=== PATIENT | male | born 1965 | race Caucasian/White ===

== ENCOUNTER → 2017-07-13 | Outpatient (CLI) | payer BC | END | disposition home or self-care (01) | LOC: C.LABSPEC 16:56 | PROVIDERS: ATTEND Podiatrist Foot & Ankle Surgery | DX: B35.1 Tinea unguium (principal) ==

== ENCOUNTER → 2017-07-28 | Outpatient (CLI) | payer BC ==
[~2017-07-28] VITALS: Ht 182.9 cm; Wt 99.9 kg
[2017-07-28 15:20] VITALS: BP 142/83; PULSE 62; Ht 182.9 cm; Wt 99.9 kg
== END | disposition home or self-care (01) ==
LOC: C.NEUR 14:48
PROVIDERS: ATTEND Internal Medicine Pulmonary Disease
DX: G47.30 Sleep apnea, unspecified (principal); R53.83 Other fatigue; J34.2 Deviated nasal septum

== ENCOUNTER 2018-06-01 17:21 | Emergency (ER) | payer BC, OTHER ==
[~2018-06-01] VITALS: Ht 182.9 cm; Wt 102.6 kg
[2018-06-01 17:26] VITALS: TEMP 36.7; Ht 182.9 cm; Wt 102.6 kg
[2018-06-01] MEDS ORDERED: ONDANSETRON INJ 2 MG/ML 2 ML VIAL IV STA (17:40)
[2018-06-01] MEDS ORDERED: ACETAMINOPHEN 500 MG TAB PO STA (17:40)
[2018-06-01] MEDS ORDERED: KETOROLAC TROMETHAMINE 30 MG/ML VIAL IV STA (17:40)
--- NOTE | 2018-06-01 17:40 | EMERGENCY ROOM VISIT NOTE ---
History Report prepared by Rosa: Sagar Escobar Under the Supervision of: Dr. Vimal Beltrán M.D. First contact with patient: 17:30 Chief Complaint: FLANK PAIN Stated Complaint: SEVERE KIDNEY PAIN History of Present Illness The patient is a 52 year old white male with a history of Acid Reflux and Sleep Apnea who presents to the Emergency Room with complaints of right flank pain x1 hour. He states the pain started x1 hour ago and notes it is sharp. He denies the pain radiating. He states he was sitting at his desk when the pain started and denies any wrong twists/turns. He denies a fever, vomiting, diarrhea, or urinary complaints. He does note nausea and chills. Source of History: patient Onset: x1 hour Position: abdomen Symptom Intensity: moderate Quality: sharp Timing: constant Associated Symptoms: + chills, + nausea, + abdominal pain, No fevers, No chest pain, No SOB, No vomiting, No diarrhea, No urinary symptoms Review of Systems See HPI for pertinent positives and negatives. A total of ten systems were reviewed and were otherwise negative. Constitutional: + chills, No fever Abdomen: + pain, + nausea, No vomiting, No diarrhea Genitourinary - Male: No hematuria, No dysuria, No urinary frequency Past Medical & Surgical Medical Problems: (1) Acid reflux (2) Sleep apnea Social History Smoking Status: Never Smoker Drug Use: none Marital Status: Housing Status: lives with significant other Occupation Status: employed Current/Historical Medications Scheduled Tamsulosin Hcl (Flomax), 0.4 MG PO DAILY Scheduled PRN Esomeprazole Magnesium (Nexium), 40 MG PO DAILY PRN for Acid Reflux Ondansetron Hcl (Zofran), 4 MG PO Q8H PRN for Nausea Oxycodone Immediate Rel Tab (Roxicodone Ir), 5 MG PO Q6H PRN for Pain Allergies Coded Allergies: No Known Allergies (Unverified , 04/05/14) Physical Exam Vital Signs Date Time Temp Pulse Resp B/P (MAP) Pulse Ox O2 Delivery O2 Flow Rate FiO2 06/01/18 19:10 67 20 140/85 97 Room Air 06/01/18 18:32 54 06/01/18 18:06 62 23 148/82 100 Room Air 06/01/18 17:26 36.7 65 20 146/88 98 Room Air Physical Exam GENERAL: Awake, alert, well-appearing, NAD HENT: Normocephalic, atraumatic. EYES: Normal conjunctiva. Sclera non-icteric. PERRL. No anisocoria. NECK: Supple. No nuchal rigidity. FROM. RESPIRATORY: CTAB, no rhonchi, wheezing, crackles CARDIAC: RRR, no MRG ABDOMEN: No CVA tenderness to palpation. Negative Obturators and Psoas. Soft, NTND, BS+ MSK: No chest wall TTP, no LE edema NEURO: GCS 15, CN 2-12 intact, moves all 4s on command SKIN: No rash or jaundice noted. Medical Decision & Procedures ER Provider Diagnostic Interpretation: Radiology results as stated below per my review and radiologist interpretation: CT OF THE ABDOMEN AND PELVIS WITHOUT CONTRAST, STONE PROTOCOL CLINICAL HISTORY: Right flank pain. COMPARISON STUDY: Renal ultrasound September 09, 2007. TECHNIQUE: Helical axial images of the abdomen and pelvis were obtained without IV or oral contrast according to renal stone protocol. A dose lowering technique was utilized adhering to the principles of ALARA. FINDINGS: Several right renal calculi measure up to 5 mm. A 3 mm distal right ureteral calculus results in mild right hydronephrosis. No left ureteral calculi are present. A 4.5 cm lesion within the upper pole of the left kidney is suboptimally assessed on this unenhanced exam but this measures water attenuation and favors a cyst. There is a probable smaller cyst within the lower pole the right kidney as well as a cyst within the medial segment of the liver. No biliary or pancreatic ductal dilatation is present. Unenhanced images of the spleen, adrenal glands and pancreas are normal. There is no evidence for a bowel obstruction. The appendix is normal. A small fat-containing umbilical hernia is noted. Note is made of a few prominent left common iliac lymph nodes which measure up to 1 cm in short axis diameter, shown on image 102 of 183. No suspicious osseous lesion is noted. IMPRESSION: 1. 3 mm distal right ureteral calculus which results in mild right hydronephrosis. 2. Right-sided nephrolithiasis. 3. Borderline enlarged left common iliac lymph nodes which are likely benign. A follow-up CT of the abdomen and pelvis in 6 months to ensure stability is recommended. Electronically signed by: Shola Phillips M.D. 06/01/2018 6:32 PM Dictated Date/Time: 06/01/2018 6:23 PM Laboratory Results 06/01/18 17:50 Red Blood Count 5.03, Mean Corpuscular Volume 87.3, Mean Corpuscular Hemoglobin 30.4, Mean Corpuscular Hemoglobin Concent 34.9, Mean Platelet Volume 10.9, Neutrophils (%) (Auto) 47.5, Lymphocytes (%) (Auto) 43.1, Monocytes (%) (Auto) 5.7, Eosinophils (%) (Auto) 2.5, Basophils (%) (Auto) 0.6, Neutrophils # (Auto) 3.26, Lymphocytes # (Auto) 2.95, Monocytes # (Auto) 0.39, Eosinophils # (Auto) 0.17, Basophils # (Auto) 0.04 06/01/18 17:50 Test 06/01/18 17:50 White Blood Count 6.85 K/uL (4.8-10.8) Red Blood Count 5.03 M/uL (4.7-6.1) Hemoglobin 15.3 g/dL (14.0-18.0) Hematocrit 43.9 % (42-52) Mean Corpuscular Volume 87.3 fL (80-100) Mean Corpuscular Hemoglobin 30.4 pg (25-34) Mean Corpuscular Hemoglobin Concent 34.9 g/dl (32-36) Platelet Count 147 K/uL (130-400) Mean Platelet Volume 10.9 fL (7.4-10.4) Neutrophils (%) (Auto) 47.5 % Lymphocytes (%) (Auto) 43.1 % Monocytes (%) (Auto) 5.7 % Eosinophils (%) (Auto) 2.5 % Basophils (%) (Auto) 0.6 % Neutrophils # (Auto) 3.26 K/uL (1.4-6.5) Lymphocytes # (Auto) 2.95 K/uL (1.2-3.4) Monocytes # (Auto) 0.39 K/uL (0.11-0.59) Eosinophils # (Auto) 0.17 K/uL (0-0.5) Basophils # (Auto) 0.04 K/uL (0-0.2) RDW Standard Deviation 40.1 fL (36.4-46.3) RDW Coefficient of Variation 12.6 % (11.5-14.5) Immature Granulocyte % (Auto) 0.6 % Immature Granulocyte # (Auto) 0.04 K/uL (0.00-0.02) Urine Color YELLOW Urine Appearance CLEAR (CLEAR) Urine pH 5.0 (4.5-7.5) Urine Specific [place] 1.020 (1.000-1.030) Urine Protein NEG (NEG) Urine Glucose (UA) NEG (NEG) Urine Ketones NEG (NEG) Urine Occult Blood NEG (NEG) Urine Nitrite NEG (NEG) Urine Bilirubin NEG (NEG) Urine Urobilinogen NEG (NEG) Urine Leukocyte Esterase NEG (NEG) Anion Gap 7.0 mmol/L (3-11) Est Creatinine Clear Calc Drug Dose 75.3 ml/min Estimated GFR () 66.1 Estimated GFR (Non- 57.1 BUN/Creatinine Ratio 11.6 (10-20) Calcium Level 8.2 mg/dl (8.5-10.1) Total Bilirubin 0.6 mg/dl (0.2-1) Direct Bilirubin 0.2 mg/dl (0-0.2) Aspartate Amino Transf (AST/SGOT) 21 U/L (15-37) Alanine Aminotransferase (ALT/SGPT) 35 U/L (12-78) Alkaline Phosphatase 146 U/L (45-117) Total Protein 6.9 gm/dl (6.4-8.2) Albumin 3.6 gm/dl (3.4-5.0) Lipase 294 U/L (73-393) Laboratory results reviewed by me Medications Administered Medications (Trade) Dose Ordered Sig/Neftali Route Start Time Stop Time Status Last Admin Dose Admin Ondansetron HCl (Zofran Inj) 4 mg NOW STAT IV 06/01/18 17:40 06/01/18 17:42 DC 06/01/18 17:57 4 MG Ketorolac Tromethamine (Toradol Inj) 30 mg NOW STAT IV 06/01/18 17:40 06/01/18 17:42 DC 06/01/18 17:58 30 MG Acetaminophen (Tylenol Tab) 1,000 mg NOW STAT PO 06/01/18 17:40 06/01/18 17:42 DC 06/01/18 17:57 1,000 MG Calcium Carbonate (Tums Chew Tab) 1,500 mg ONE STAT PO 06/01/18 18:32 06/01/18 18:33 DC 06/01/18 19:02 1,500 MG Tamsulosin HCl (Flomax Cap) 0.4 mg NOW ONCE PO 06/01/18 18:45 06/01/18 18:46 DC 06/01/18 19:02 0.4 MG Oxycodone HCl (Roxicodone Immediate Rel 5MG Home Pack) 1 homepack UD ONCE PO 06/01/18 18:45 06/01/18 18:46 DC 06/01/18 19:02 1 [facility] Medical Decision Nursing notes reviewed. Ancillary studies and prior records reviewed. The patient is a 52 year old white male with a history of Acid Reflux and Sleep Apnea who presents to the Emergency Room with complaints of right flank pain x1 hour. Differential diagnosis: Etiologies such as renal colic, appendicitis, diverticulitis, mesenteric ischemia, aortic pathology, infections, inflammatory bowel disease, PUD, biliary pathology, UTI, as well as others were entertained. Patient was seen and evaluated the bedside. The patient was presenting with concern for right-sided flank pain. Patient denies any hematuria recent heavy lifting or straining or twisting. Patient also denies any recent trauma. Patient did blood work completed along with urinalysis and a CT Noncon to evaluate for possible stone. Patient's blood work shows normal H&H and normal kidney function. Urinalysis does not show any blood and does not show any evidence of acute infection. Patient's CT scan did show a distal 3 mm stone that is close to the bladder. Given the location and size I do not believe he needs emergent intervention at this time. I did discuss the findings with the patient. The patient is feeling much improved after he had been medicated. I did have a discussion with the patient about appropriate hzhy-keo-[id number] treatment as well as narcotic medication. Patient was given a prescription for narcotics for home was told to use them with caution. Patient was also given additional industrial relations counselor about when and when not to use them. The patient was given warning signs for which to return. Patient was given a first dose of Flomax. The patient also did have noted increased pelvic lymphadenopathy. I did explain this to the patient and that he should follow-up with his PCP for a possible repeat scan in 6 months for surveillance. Patient was given strict follow-up, discharge, and return precautions. All questions were answered. Patient was deemed suitable for outpatient follow-up at this time. Patient agreed with the plan of care and was safely discharged home. [place] Drug Monitoring Program Search Results: patient reviewed within database Drug Monitoring Findings: No controlled narcotics since June of last year w/in [place] Medication Reconcilliation Current Medication List: was personally reviewed by me Blood Pressure Screening Patient's blood pressure: Elevated blood pressure Blood pressure disposition: Referred to PCP Impression Primary Impression: Renal colic on right side Additional Impression: Flank pain Scribe Attestation The scribe's documentation has been prepared under my direction and personally reviewed by me in its entirety. I confirm that the note above accurately reflects all work, treatment, procedures, and medical decision making performed by me. Departure Information Dispostion Home / Self-Care Prescriptions Oxycodone Immediate Rel Tab (ROXICODONE IR) 5 Mg Tab 5 MG PO Q6H Y for Pain, #15 TAB Prov: Vimal Beltrán M.D. 06/01/18 Ondansetron Hcl (ZOFRAN) 4 Mg Tab 4 MG PO Q8H Y for Nausea, #12 TAB Prov: Vimal Beltrán M.D. 06/01/18 Tamsulosin Hcl (FLOMAX) 0.4 Mg Cap 0.4 MG PO DAILY for 12 Days, #12 CAP Prov: Vimal Beltrán M.D. 06/01/18 Referrals Haydee Foley MD (PCP) Patient Instructions Kidney Stones - [facility], Kidney Stones [facility], [facility] Additional Instructions Please return to the emergency department if you have worsening or recurrent symptoms not amenable to at-home treatment. Please call for a follow-up appointment with her primary care physician. Please take your medications as prescribed. If you have other concerns and/or complaints please feel free to also call your primary care physician's office or return the ED for further evaluation, management, and treatment. You may take 600 mg Ibuprofen every 6 hours as needed for pain/fever with food unless told by your physician not to take NSAIDs. You may take tylenol 650 mg every 6 hours as needed for pain/fever unless told by your physician to not take it or have liver problems. You may take motrin and tylenol separately or at the same time. Take your medications as prescribed. If you still have discomfort you may take the narcotic medication. Please be advised that these medications are habit forming, can make you sleepy, and can cause breathing issues. Do not use if you require your full attention. Take only as prescribed. Please take your Flomax before bed as it can cause some low blood pressure and lightheadedness. As discussed you do have some pelvic lymphadenopathy which may require a repeat CT scan for surveillance in 6 months. Please discuss this with your primary care physician. You have been examined and treated today on an emergency basis only. This is not a substitute for, or an effort to provide, complete comprehensive medical care. It is impossible to recognize and treat all injuries or illnesses in a single emergency department visit. It is therefore important that you follow up closely with [facility], your PCP, and/or your specialist(s). Call as soon as possible for an appointment. Thank you for your time and consideration. I look forward to speaking with you again soon. Please don't hesitate to call us if you have any questions. Problem Qualifiers
[2018-06-01 18:03] LABS: BASO % 0.6 %; BASO ABS # 0.04 K/uL (0-0.2); EOS % 2.5 %; EOS ABS # 0.17 K/uL (0-0.5); HEMATOCRIT 43.9 % (42-52); HEMOGLOBIN 15.3 g/dL (14.0-18.0); IG# 0.04 K/uL (0.00-0.02); LYMPH % 43.1 %; LYMPH ABS # 2.95 K/uL (1.2-3.4); MEAN CELL VOLUME 87.3 fL (80-100); MEAN CORPUSCULAR HEMOGLOBIN 30.4 pg (25-34); MEAN CORPUSCULAR HGB CONC 34.9 g/dl (32-36); MEAN PLATELET VOLUME 10.9 fL (7.4-10.4); MONO % 5.7 %; MONO ABS # 0.39 K/uL (0.11-0.59); NEUT % 47.5 %; NEUT ABS # 3.26 K/uL (1.4-6.5); PLATELET COUNT 147 K/uL (130-400); RED CELL DISTRIBUTION WIDTH CV 12.6 % (11.5-14.5); RED CELL DISTRIBUTION WIDTH SD 40.1 fL (36.4-46.3); WHITE BLOOD COUNT 6.85 K/uL (4.8-10.8)
[2018-06-01 18:27] LABS: ALBUMIN 3.6 gm/dl (3.4-5.0); CALCIUM 8.2 mg/dl (8.5-10.1); CREATININE 1.39 mg/dl (0.60-1.40); POTASSIUM 3.5 mmol/L (3.5-5.1); TOTAL PROTEIN 6.9 gm/dl (6.4-8.2)
[2018-06-01] MEDS ORDERED: CALCIUM CARBONATE 500 MG CHEWABLE PO STA (18:32)
--- NOTE | 2018-06-01 18:33 | DIAGNOSTIC IMAGING REPORT ---
CT OF THE ABDOMEN AND PELVIS WITHOUT CONTRAST, STONE PROTOCOL CLINICAL HISTORY: Right flank pain. COMPARISON STUDY: Renal ultrasound September 09, 2007. TECHNIQUE: Helical axial images of the abdomen and pelvis were obtained without IV or oral contrast according to renal stone protocol. A dose lowering technique was utilized adhering to the principles of ALARA. FINDINGS: Several right renal calculi measure up to 5 mm. A 3 mm distal right ureteral calculus results in mild right hydronephrosis. No left ureteral calculi are present. A 4.5 cm lesion within the upper pole of the left kidney is suboptimally assessed on this unenhanced exam but this measures water attenuation and favors a cyst. There is a probable smaller cyst within the lower pole the right kidney as well as a cyst within the medial segment of the liver. No biliary or pancreatic ductal dilatation is present. Unenhanced images of the spleen, adrenal glands and pancreas are normal. There is no evidence for a bowel obstruction. The appendix is normal. A small fat-containing umbilical hernia is noted. Note is made of a few prominent left common iliac lymph nodes which measure up to 1 cm in short axis diameter, shown on image 102 of 183. No suspicious osseous lesion is noted. IMPRESSION: 1. 3 mm distal right ureteral calculus which results in mild right hydronephrosis. 2. Right-sided nephrolithiasis. 3. Borderline enlarged left common iliac lymph nodes which are likely benign. A follow-up CT of the abdomen and pelvis in 6 months to ensure stability is recommended. Electronically signed by: Shola Phillips M.D. 06/01/2018 6:32 PM Dictated Date/Time: 06/01/2018 6:23 PM
[2018-06-01] MEDS ORDERED: TAMSULOSIN HCL 0.4 MG CAP PO ONE (18:45)
[2018-06-01] MEDS ORDERED: OXYCODONE IR HOME PACK PO ONE (18:45)
[2018-06-01] MEDS ORDERED: NXM/40 PO (18:45)
[2018-06-01] MEDS ORDERED: TAMS0.4C38 PO (18:56)
[2018-06-01] MEDS ORDERED: ONDA4TAB46 PO (18:56)
[2018-06-01] MEDS ORDERED: OXYC-737 PO (18:56)
[2018-06-01 19:10] VITALS: BP 140/85; PULSE 67; O2SAT 97
== END 2018-06-01 19:40 | disposition home or self-care (01) ==
LOC: C.EDB 17:23 → C.EDA 19:40
DX: N23 Unspecified renal colic (principal); R03.0 Elevated blood-pressure reading, without diagnosis of hypertension; Z79.899 Other long term (current) drug therapy

== ENCOUNTER 2021-10-10 16:17 | Inpatient (IN) ==
[2021-10-10] MEDS ORDERED: SODIUM CHLORIDE 0.9% 1000ML 1,000 ML IV ONE ×2 (16:38→17:55)
[2021-10-10] MEDS ORDERED: MoRPHine SULFATE 10 MG/ML CARP/VIAL IV STA (16:38)
[2021-10-10] MEDS ORDERED: ONDANSETRON INJ 2 MG/ML 2 ML VIAL IV STA (16:38)
[2021-10-10 17:05] LABS: Basophils # (auto) 0.02 K/uL (0-0.2); Basophils % (auto) 0.3 %; Eosinophils # (auto) 0.11 K/uL (0-0.5); Eosinophils % (auto) 1.4 %; Hemoglobin 16.9 g/dL (14.0-18.0); Immature Granulocytes # (auto) 0.03 K/uL (0.00-0.02); Immature Granulocytes % (auto) 0.4 %; Lymphocytes % (auto) 25.4 %; Mean Corpuscular Hemoglobin 30.9 pg (25-34); Mean Corpuscular Volume 85.9 fL (80-100); Mean Platelet Volume 10.9 fL (7.4-10.4); Monocytes % (auto) 7.6 %; Neutrophils % (auto) 64.9 %; Platelet Count 163 K/uL (130-400); RDW Coefficient of Variation 12.2 % (11.5-14.5); RDW Standard Deviation 38.1 fL (36.4-46.3); Red Blood Count 5.47 M/uL (4.7-6.1); White Blood Count 7.86 K/uL (4.8-10.8)
--- NOTE | 2021-10-10 17:18 | CT Scan Report ---
ABDOMEN AND PELVIS CT WITHOUT CONTRAST CT DOSE: 1084.68 mGycm HISTORY: right flank pain, hx stones TECHNIQUE: Multiaxial CT images of the abdomen and pelvis were performed without contrast. A dose lo wering technique was utilized adhering to the principles of ALARA. COMPARISON STUDY: Abdomen and pelvis CT 10/17/2020. FINDINGS: Scattered subcentimeter pulmonary nodules are again noted at the lung bases. These are not significantly changed. No pneumoperitoneum. No pneumatosis. No suspicious lytic or blastic osseous le sions. Tiny fat-containing umbilical hernia. The unenhanced gallbladder, spleen, pancreas, and adrena l glands are unremarkable. Normal caliber abdominal aorta. The bladder is unremarkable. The prostate gland is mildly enlarged. Moderate well-formed stool seen throughout the colon. No bowel wall thicken ing or obstruction. Normal appendix. Slight improvement in the mild lymphadenopathy seen within the d istal periaortic and right common iliac stations. Dominant right common iliac lymph node currently me asures 18 x 10 mm, previously measuring 22 x 13 mm. No mesenteric lymphadenopathy. Stable hypodense l esion within the liver which favors a cyst. Stable left renal hypodense lesions which also likely rep resent cysts. There are few small stones within the right kidney measuring up to 4 mm. There is a 4 m m stone within the proximal right ureter on image 249 resulting in mild right hydronephrosis. No left renal or ureteral stones. No left-sided hydronephrosis. IMPRESSION: 1. A 4 mm obstructing stone within the proximal right ureter resulting in mild right hydronephrosis. 2. Right-sided nephrolithiasis. 3. Stable subcentimeter pulmonary nodules seen at the lung bases. 4. Slight improvement in the mildly enlarged distal periaortic and right common iliac lymph nodes. ACT 112: Negative or not required by law. Electronically signed by: Yann Giordano M.D. 10/10/2021 5:17 PM
[2021-10-10 17:30] LABS: Alanine Aminotransferase 63 (12-78); Albumin Level 3.9 gm/dl (3.4-5.0); Aspartate Aminotransferase 33 U/L (15-37); BUN Creatinine Ratio 16.6 (10-20); Blood Urea Nitrogen 24 mg/dl (7-18); Calcium 9.1 mg/dl (8.5-10.1); Carbon Dioxide 25 mmol/L (21-32); Chloride 109 mmol/L (98-107); Est GFR (Non-African American) 52.6 ml/min; Glucose 143 mg/dl (70-99); Potassium 3.7 mmol/L (3.5-5.1); Sodium 139 mmol/L (136-145)
[2021-10-10 17:33] LABS: Albumin Globulin Ratio 1.1 (0.9-2); Alkaline Phosphatase 176 U/L (45-117); Bilirubin,Total 0.9 mg/dl (0.2-1); Globulin 3.6 gm/dl (2.5-4.0); Total Protein 7.5 gm/dl (6.4-8.2)
[2021-10-10] MEDS ORDERED: HYDROmorphone INJ 1 MG/ML SYRINGE IV STA (17:55)
[2021-10-10 18:11] LABS: Appearance Urine Clear (Clear); Bacteria Urine Automated Negative (Negative); Bilirubin Urine Negative (Negative); Blood Urine 2+ (Negative); Color Urine Yellow; Epithelial Cell Urine Auto 20-30 /lpf (0-5); Glucose Urine UA Negative (Negative); Ketones Urine Trace (Negative); Leukocyte Esterase Urine Negative (Negative); Nitrite Urine Negative (Negative); Protein Urine Negative (Negative); Specific Gravity Urine 1.022 (1.000-1.030); Urobilinogen Urine Negative (Negative); pH Urine 5.5 (4.5-7.5)
--- NOTE | 2021-10-10 18:17 | Emergency Department Note ---
History of Present Illness General Chief complaint: Kidney Stone Stated complaint: KIDNEY STONE, PAIN ON R SIDE Time Seen by Provider: 10/10/21 17:35 Source: patient Mode of arrival: ambulatory Limitations: no limitations History of Present Illness Maximum Pain Intensity: 10 This patient is a 55-year-old male who presents to the emergency department for evaluation of right-sided flank pain. Patient has a history of kidney stones and states this feels similar. He reports the pain is in his right flank. He denies any urinary symptoms at this time, but states that he has not urinated since the pain started. He rates the pain a "08/21." He denies any vomiting but does report nausea. He denies having any prior surgery due to kidney stones. Home Medications Medication Instructions Recorded Confirmed Type esomeprazole magnesium 40 mg 40 mg PO QPM #90 cap 06/19/21 10/10/21 Rx capsule,delayed release atorvastatin 10 mg tablet 10 mg PO QPM #90 tab 09/04/21 10/10/21 Rx Allergies Allergy/AdvReac Type Severity Reaction Status Date / Time No Known Allergies Allergy Verified 10/10/21 18:30 Past Med/Surg History Medical History (Updated 10/10/21 @ 21:05 by Marcela Vargas PA-C) GERD (gastroesophageal reflux disease) Kidney stones Migraine HX OF Sleep apnea cpap Urination frequency Surgical History History of colonoscopy History of tooth extraction Hx of vasectomy Family History Sister Breast cancer Family hx colonic polyps Mother Breast cancer Grandfather Myocardial infarction Father Family hx colonic polyps Other No family history of adverse response to anesthesia Denies family history of Ovarian cancer Prostate cancer Colorectal cancer Social History Smoking Status: Never smoker Second Hand Exposure: Yes (in childhood); Hx Alcohol Use: No Hx Substance Use: No Preferred Language: [place] Zealander Communication Ability: Effective Visual Impairment: No Limitations Hearing Ability: Normal Legal Secretary Required: No Beliefs That Will Affect Care: None marital status: Current Living Situation: Significant Other current occupational status: employed How many Children do You have: 2 Feels Safe at Home: Yes Childhood Exposure to Second-Hand Smoke: No caffeine: Yes during the past year weight has: increased > 10 lbs Dental Care, Regularly: Yes Physical Activity Frequency: Daily Seatbelt Use: always Sunscreen Use: Yes Assistive Devices: CPAP and Glasses Review of Systems A total of 10 systems reviewed and were otherwise negative Physical Exam Vital Signs Vital Signs - 24 hr 10/10/21 16:34 10/10/21 18:17 10/10/21 19:30 Temperature 36.8 C Temperature Source Temporal Artery Scan Pulse Rate 56 L Pulse Rate [Finger] 88 87 Respiratory Rate 22 20 18 Blood Pressure 145/91 H Blood Pressure [Left Arm] 158/85 H 130/72 Blood Pressure Mean 109 Blood Pressure Mean [Left Arm] 109 91 Pulse Oximetry 99 98 94 Oxygen Delivery Method Room Air Room Air Sepsis Recent Fever Within 48 Hours No Sepsis New/Unexplained Change in Mental Status N/A Sepsis Action Taken by Nursing No Action Required Oxygen Flow Rate - Titration Pulse Oximetry Post Tiitration 10/10/21 20:13 Temperature Temperature Source Pulse Rate Pulse Rate [Finger] Respiratory Rate Blood Pressure Blood Pressure [Left Arm] Blood Pressure Mean Blood Pressure Mean [Left Arm] Pulse Oximetry 87 L Oxygen Delivery Method Room Air Nasal Cannula Sepsis Recent Fever Within 48 Hours Sepsis New/Unexplained Change in Mental Status Sepsis Action Taken by Nursing Oxygen Flow Rate - Titration 2 Pulse Oximetry Post Tiitration 94 VITALS: Vitals are noted on the nurse's note and reviewed by myself. GENERAL: This is a 55-year-old male, in no acute distress, well-developed well- nourished. SKIN: The skin was without rashes. EYES: Pupils equal round and reactive to light and accommodation. MOUTH: Mucous membranes moist. NECK: Supple without nuchal rigidity. HEART: Regular rate and rhythm without murmurs gallops or rubs. LUNGS: Clear to auscultation bilaterally without wheezes, rales or rhonchi. ABDOMEN: Positive bowel sounds x 4. Soft, nontender to palpation. Right-sided CVA tenderness. No guarding or rebound tenderness. NEURO: Patient was alert and oriented to person place and time. Course Administered Medications Discontinued Medications Hydromorphone HCl (Hydromorphone Inj 1 Mg/Ml Syringe) 1 mg IV NOW STA Stop: 10/10/21 17:56 Last Admin: 10/10/21 18:00 Dose: 1 mg Documented by: [id number] Sodium Chloride (Nss 1000ml) 1,000 mls @ 999 mls/hr IV .Q1H1M ONE Stop: 10/10/21 17:38 Last Infusion: 10/10/21 18:01 Dose: 0 mls/hr Documented by: [id number] Admin: 10/10/21 16:53 Dose: 999 mls/hr Documented by: [id number] Sodium Chloride (Nss 1000ml) 1,000 mls @ 999 mls/hr IV .Q1H1M ONE Stop: 10/10/21 18:55 Last Infusion: 10/10/21 19:04 Dose: 0 mls/hr Documented by: [id number] Admin: 10/10/21 18:00 Dose: 999 mls/hr Documented by: [id number] Acetaminophen (Ofirmev) 1,000 mg in 100 mls @ 400 mls/hr IV NOW STA Stop: 10/10/21 19:23 Last Infusion: 10/10/21 19:43 Dose: 0 mls/hr Documented by: [id number] Admin: 10/10/21 19:17 Dose: 400 mls/hr Documented by: [id number] Morphine Sulfate (Morphine Sulfate 10 Mg/Ml Carp/Vial) 6 mg IV NOW STA Stop: 10/10/21 16:39 Last Admin: 10/10/21 16:52 Dose: 6 mg Documented by: [id number] Ondansetron HCl (Ondansetron Inj 2 Mg/Ml 2 Ml Vial) 4 mg IV NOW STA Stop: 10/10/21 16:39 Last Admin: 10/10/21 16:52 Dose: 4 mg Documented by: [id number] Medical Decision Making Differential Diagnosis Differential diagnosis includes renal calculus, pyelonephritis, musculoskeletal pain, ruptured AAA, aortic dissection, diverticulitis, perforated viscus, bowel obstruction, biliary pathology, pancreatitis, PE, pneumonia, pneumothorax, trauma, herpes zoster, malignancy, among others. Home Medications Current Medication List: was personally reviewed by me Laboratory Data Attestation: I reviewed the patient's lab results. Result diagrams: 10/10/21 16:53 10/10/21 16:53 Lab Results 10/10/21 10/10/21 10/10/21 Range/Units 16:53 16:53 17:47 WBC 7.86 (4.8-10.8) K/uL RBC 5.47 (4.7-6.1) M/uL Hgb 16.9 (14.0-18.0) g/dL Hct 47.0 (42-52) % MCV 85.9 (80-100) fL MCH 30.9 (25-34) pg MCHC 36.0 (32-36) g/dL RDW Std Deviation 38.1 (36.4-46.3) fL RDW Coeff of Rick 12.2 (11.5-14.5) % Plt Count 163 (130-400) K/uL MPV 10.9 H (7.4-10.4) fL Immature Gran % (Auto) 0.4 % Neut % (Auto) 64.9 % Lymph % (Auto) 25.4 % Grant % (Auto) 7.6 % Eos % (Auto) 1.4 % Baso % (Auto) 0.3 % Neut # (Auto) 5.10 (1.4-6.5) K/uL Lymph # (Auto) 2.00 (1.2-3.4) K/uL Grant # (Auto) 0.60 H (0.11-0.59) K/uL Eos # (Auto) 0.11 (0-0.5) K/uL Baso # (Auto) 0.02 (0-0.2) K/uL Immature Gran # (Auto) 0.03 H (0.00-0.02) K/uL Sodium 139 (136-145) mmol/L Potassium 3.7 (3.5-5.1) mmol/L Chloride 109 H (98-107) mmol/L Carbon Dioxide 25 (21-32) mmol/L Anion Gap 5.0 (3-11) BUN 24 H (7-18) mg/dl Creatinine 1.46 H (0.6-1.4) mg/dl Est Cr Clr Drug Dosing Not Reportable Est GFR ( Amer) 61.0 ml/min Est GFR (Non-Af Amer) 52.6 ml/min BUN/Creatinine Ratio 16.6 (10-20) Glucose 143 H (70-99) mg/dl Calcium 9.1 (8.5-10.1) mg/dl Total Bilirubin 0.9 (0.2-1) mg/dl AST 33 (15-37) U/L ALT 63 (12-78) Alkaline Phosphatase 176 H (45-117) U/L Total Protein 7.5 (6.4-8.2) gm/dl Albumin 3.9 (3.4-5.0) gm/dl Globulin 3.6 (2.5-4.0) gm/dl Albumin/Globulin Ratio 1.1 (0.9-2) Urine Color Yellow Urine Appearance Clear (Clear) Urine pH 5.5 (4.5-7.5) Ur Specific [place] 1.022 (1.000-1.030) Urine Protein Negative (Negative) Urine Glucose (UA) Negative (Negative) Urine Ketones Trace H (Negative) Urine Blood 2+ H (Negative) Urine Nitrite Negative (Negative) Urine Bilirubin Negative (Negative) Urine Urobilinogen Negative (Negative) Ur Leukocyte Esterase Negative (Negative) Urine WBC (Auto) 1-5 (0-5) /hpf Urine RBC (Auto) 10-30 H (0-4) /hpf U Hyaline Cast (Auto) 1-5 (0-5) /lpf U Epithel Cells (Auto) 20-30 H (0-5) /lpf Urine Bacteria (Auto) Negative (Negative) SARS-CoV-2, RNA, NAAT (NEGATIVE) 10/10/21 Range/Units 19:20 WBC (4.8-10.8) K/uL RBC (4.7-6.1) M/uL Hgb (14.0-18.0) g/dL Hct (42-52) % MCV (80-100) fL MCH (25-34) pg MCHC (32-36) g/dL RDW Std Deviation (36.4-46.3) fL RDW Coeff of Rick (11.5-14.5) % Plt Count (130-400) K/uL MPV (7.4-10.4) fL Immature Gran % (Auto) % Neut % (Auto) % Lymph % (Auto) % Grant % (Auto) % Eos % (Auto) % Baso % (Auto) % Neut # (Auto) (1.4-6.5) K/uL Lymph # (Auto) (1.2-3.4) K/uL Grant # (Auto) (0.11-0.59) K/uL Eos # (Auto) (0-0.5) K/uL Baso # (Auto) (0-0.2) K/uL Immature Gran # (Auto) (0.00-0.02) K/uL Sodium (136-145) mmol/L Potassium (3.5-5.1) mmol/L Chloride (98-107) mmol/L Carbon Dioxide (21-32) mmol/L Anion Gap (3-11) BUN (7-18) mg/dl Creatinine (0.6-1.4) mg/dl Est Cr Clr Drug Dosing Est GFR ( Amer) ml/min Est GFR (Non-Af Amer) ml/min BUN/Creatinine Ratio (10-20) Glucose (70-99) mg/dl Calcium (8.5-10.1) mg/dl Total Bilirubin (0.2-1) mg/dl AST (15-37) U/L ALT (12-78) Alkaline Phosphatase (45-117) U/L Total Protein (6.4-8.2) gm/dl Albumin (3.4-5.0) gm/dl Globulin (2.5-4.0) gm/dl Albumin/Globulin Ratio (0.9-2) Urine Color Urine Appearance (Clear) Urine pH (4.5-7.5) Ur Specific [place] (1.000-1.030) Urine Protein (Negative) Urine Glucose (UA) (Negative) Urine Ketones (Negative) Urine Blood (Negative) Urine Nitrite (Negative) Urine Bilirubin (Negative) Urine Urobilinogen (Negative) Ur Leukocyte Esterase (Negative) Urine WBC (Auto) (0-5) /hpf Urine RBC (Auto) (0-4) /hpf U Hyaline Cast (Auto) (0-5) /lpf U Epithel Cells (Auto) (0-5) /lpf Urine Bacteria (Auto) (Negative) SARS-CoV-2, RNA, NAAT NEGATIVE (NEGATIVE) Imaging Data Attestation: I personally reviewed and interpreted this imaging study as follows: Radiologist's Impression: Abdomen/Pelvis CT 10/10/21 16:[address] WITHOUT CONTRAST CT DOSE: 1084.68 mGycm HISTORY: right flank pain, hx stones TECHNIQUE: Multiaxial CT images of the abdomen and pelvis were performed without contrast. A dose lowering technique was utilized adhering to the principles of ALARA. COMPARISON STUDY: Abdomen and pelvis CT 10/17/2020. FINDINGS: Scattered subcentimeter pulmonary nodules are again noted at the lung bases. These are not significantly changed. No pneumoperitoneum. No pneumatosis. No suspicious lytic or blastic osseous lesions. Tiny fat-containing umbilical hernia. The unenhanced gallbladder, spleen, pancreas, and adrenal glands are unremarkable. Normal caliber abdominal aorta. The bladder is unremarkable. The prostate gland is mildly enlarged. Moderate well-formed stool seen throughout the colon. No bowel wall thickening or obstruction. Normal appendix. Slight improvement in the mild lymphadenopathy seen within the distal periaortic and right common iliac stations. Dominant right common iliac lymph node currently measures 18 x 10 mm, previously measuring 22 x 13 mm. No mesenteric lymphadenopathy. Stable hypodense lesion within the liver which favors a cyst. Stable left renal hypodense lesions which also likely represent cysts. There are few small stones within the right kidney measuring up to 4 mm. There is a 4 mm stone within the proximal right ureter on image 249 resulting in mild right hydronephrosis. No left renal or ureteral stones. No left-sided hydronephrosis. IMPRESSION: 1. A 4 mm obstructing stone within the proximal right ureter resulting in mild right hydronephrosis. 2. Right-sided nephrolithiasis. 3. Stable subcentimeter pulmonary nodules seen at the lung bases. 4. Slight improvement in the mildly enlarged distal periaortic and right common iliac lymph nodes. ACT 112: Negative or not required by law. Electronically signed by: Yann Giordano M.D. 10/10/2021 5:17 PM MDM Narrative Continuous court monitor: Order was placed for continuous court monitor. Patient was placed on the court monitor. Patient was noted to be in normal sinus rhythm at an initial rate of 70 bpm. The patient is a 55-year-old male who presents today complaining of flank pain. CT scan revealed a 4 mm proximal kidney stone with hydronephrosis. Labs revealed a mildly elevated creatinine of 1.46. Urinalysis not suggestive of infection. Patient received multiple doses of IV pain medication without much relief. He will require admission for pain control. The [facility]ist service was consulted and will evaluate the patient for further care. Impression & Plan Calculus of proximal right ureter, Hydronephrosis with obstructing calculus, Intractable abdominal pain Discharge Plan Visit Data Chief Complaint: Kidney Stone Stated Complaint: KIDNEY STONE, PAIN ON R SIDE ED Provider: Gian Caraballo ED Midlevel Provider: Marcela Vargas Discharge Problem: Calculus of proximal right ureter, Hydronephrosis with obstructing calculus, Intractable abdominal pain Forms Stand Alone Forms: [facility] Prescriptions Prescriptions: No Action esomeprazole magnesium 40 mg capsule,delayed release(DR/EC) 40 mg PO QPM Qty: 90 RF: 1 atorvastatin 10 mg tablet 10 mg PO QPM Qty: 90 RF: 1 Referrals Referrals: Haydee Foley MD [Primary Care Provider] -
[2021-10-10] MEDS ORDERED: ACETAMINOPHEN 1,000 MG/100 ML VIAL IV STA (19:09)
--- NOTE | 2021-10-10 19:51 | History & Physical Report ---
Date of Service October 10, 2021 Assessment & Plan (1) Hydronephrosis with renal and ureteral calculous obstruction: Plan: Mr. Piña is a 55 yo gentleman with a PMHx of a kidney stone who presented for sudden onset right flank pain. - CT abdomen and pelvis showing a 4mm right sided obstructing kidney stone at the proximal ureter with mild hydronephrosis - Rocephin 1g IV administered - there is a chance a 4mm stone will pass expectantly - urology consult placed - NPO in the event of potential procedure. NSS at 125mls/hr - flomax 0.4mg ordered - Pain regimen: Tylenol 1 gram IV for mild pain, Morphine 2mg IV for moderate pain, Dilaudid 1mg for severe pain. - zofran prn for nausea - strain all urine, recommend stone analysis if captured (2) Elevated serum creatinine: Plan: - creatinine 1.46, BUN at 24 - baseline 1.2 - 1.4 - likely post-renal component given obstructing stone - continue NSS and flomax - trend BMP (3) Dyslipidemia: Plan: - continue home dose atorvastatin (4) Chronic GERD: Plan: - continue home dose esomeprazole (5) Mild obstructive sleep apnea: Plan: - CPAP ordered on admission DVT ppx: SCDs - hold off on chemo in the event of procedure Diet: NPO Dispo: Med/Surg Code: Full, I discussed with patient History of Present Illness Primary Care Provider: Haydee Foley MD Mr. Piña is a 55 yo gentleman with a PMHx of kidney stones who came to the [facility] ED for sudden onset R flank pain that started 1 hour prior to arrival. He likens the nature of the pain to that which he felt with his previous kidney stone in 2018. Fortunately, he did not require any stent placement or lithotripsy with the previous stone - it passed within several hours of pain onset. He denies any dysuria or increased urinary frequency. He is nauseous but has not vomited. He denies any family history of kidney stones. He is a non-smoker. Drinks Etoh on a social basis only. He was fully immunized against COVID 19. On arrival to the ED, he was afebrile with normal HR. His BP was slightly above goal at 158/85. He was breathing well on room air. His CBC was normal. His Cr was 1.46, BUN at 24. Electrolytes WNL. UA 2+ blood, neg for infection. CT of abdomen and pelvis showing a 4mm obstructing stone within the R proximal ureter with mild hydronephrosis. He was given Tylenol, 1g IV, Morphine 6mg IV, Dilaudid 1mg IV for pain control; zofran and 2 liters of NSS. Allergies Allergy/AdvReac Type Severity Reaction Status Date / Time No Known Allergies Allergy Verified 10/10/21 18:30 Home Medications Medication Instructions Recorded Confirmed Type esomeprazole magnesium 40 mg 40 mg PO QPM #90 cap 06/19/21 10/10/21 Rx capsule,delayed release atorvastatin 10 mg tablet 10 mg PO QPM #90 tab 09/04/21 10/10/21 Rx Past Med/Surg History Medical History (Updated 10/10/21 @ 21:05 by Marcela Vargas PA-C) GERD (gastroesophageal reflux disease) Kidney stones Migraine HX OF Sleep apnea cpap Urination frequency Surgical History History of colonoscopy History of tooth extraction Hx of vasectomy Family History Sister Breast cancer Family hx colonic polyps Mother Breast cancer Grandfather Myocardial infarction Father Family hx colonic polyps Other No family history of adverse response to anesthesia Denies family history of Ovarian cancer Prostate cancer Colorectal cancer Social History Smoking Status: Never smoker Second Hand Exposure: Yes (in childhood); Hx Alcohol Use: No Hx Substance Use: No Preferred Language: Yemeni Communication Ability: Effective Visual Impairment: No Limitations Hearing Ability: Normal Ore Fielder Required: No Beliefs That Will Affect Care: None marital status: Current Living Situation: Significant Other current occupational status: employed How many Children do You have: 2 Other Information That Helps Us Care for You: No Feels Safe at Home: Yes Childhood Exposure to Second-Hand Smoke: No caffeine: Yes during the past year weight has: increased > 10 lbs Dental Care, Regularly: Yes Physical Activity Frequency: Daily Seatbelt Use: always Sunscreen Use: Yes Assistive Devices: None Review of Systems Review of Systems: All systems reviewed & are unremarkable except as noted in HPI & below Physical Exam Constitutional: WD/WN, vitals as above + acute distress (secondary to pain), + obese and cooperative Eyes: + anicteric sclerae ENMT: external ear and nose normal, oropharynx normal Neck: normal visual inspection and trachea midline Respiratory: normal respiratory effort, lungs clear to auscultation no cough Cardiovascular: RRR, no murmur, no edema Heart Sounds: normal S1 and normal S2 Extremities: no pedal edema Gastrointestinal (Abdomen): normal bowel sounds, soft, nontender, no hepatosplenomegaly No CVA tenderness Musculoskeletal: Head/Neck/Chest: normocephalic and head atraumatic Skin: no rashes, warm and dry Neurologic: moves all extremities Psychiatric: A+Ox3, euthymic affect Results & Data Results & Data ([facility]) Vital Signs (Past 12 Hours) Vital Signs Temp Pulse Pulse Resp BP BP Pulse Ox 10/10/21 18:17 88 20 158/85 H 98 10/10/21 16:34 36.8 C 56 L 22 145/91 H 99 Supervising Physician Co-Signing Physician Notes Attending addendum: I have physically seen this patient, have supervised the medical residents activities, and agree with the H&P unless as otherwise noted. Assessment and Plan: 4 mm right proximal ureteral stone/mild right hydronephrosis- NPO IV fluids Ceftriaxone 2 g IV daily Follow urine culture sensitivities Tamsulosin 0.4 mg daily Zofran 4 mg IV every 6 hours as needed Tylenol 1 g IV every 8 hours as needed mild pain or fever Morphine sulfate 2 mg IV every 4 hours as needed moderate pain Dilaudid 1 mg IV every 4 hours as needed severe pain Consult urology Remaining orders and notations as noted Resident Activity Tracking Resident Involvement: Resident Care Provided Care Provided: Adult Hospital Medicine
[2021-10-10] MEDS ORDERED: MoRPHine SULFATE 2 MG/ML CARP IM PRN (21:48)
[2021-10-10] MEDS ORDERED: cefTRIAXone SODIUM 350 MG/ML IM IM ONE (21:48)
[2021-10-10] MEDS ORDERED: MoRPHine SULFATE 2 MG/ML CARP IV PRN (22:00)
[2021-10-10] MEDS ORDERED: cefTRIAXone SODIUM 2,000 MG/70 ML BAG IV STA (22:01)
[2021-10-10] MEDS ORDERED: TAMSULOSIN HCL 0.4 MG CAP PO STA (22:02)
[2021-10-10] MEDS: PANTOprazole 40 MG TAB PO SCH (23:11)
[2021-10-10] MEDS: ATORVASTATIN 10 MG TAB PO SCH (23:12)
[2021-10-10] MEDS: HYDROmorphone INJ 0.5 MG/0.5 ML SYR IV PRN (23:14)
[2021-10-10] MEDS: ONDANSETRON INJ 2 MG/ML 2 ML VIAL IV PRN (23:19)
[2021-10-10] MEDS: SODIUM CHLORIDE 0.9% 1000ML 1,000 ML IV SCH (23:23)
[2021-10-11] MEDS: HYDROmorphone INJ 0.5 MG/0.5 ML SYR IV PRN ×6 (03:56→22:57)
[2021-10-11] MEDS: ACETAMINOPHEN 1,000 MG/100 ML VIAL IV PRN ×2 (04:33→16:33)
[2021-10-11] MEDS: ONDANSETRON INJ 2 MG/ML 2 ML VIAL IV PRN ×3 (06:12→18:17)
--- NOTE | 2021-10-11 07:29 | Hospitalist Progress Note ---
Date of Service October 11, 2021 Assessment & Plan (1) Hydronephrosis with renal and ureteral calculous obstruction: Plan: Mr. Piña is a 55 yo gentleman with a PMHx of a kidney stone who presented for sudden onset right flank pain. Renal/ureteral stone with hydronephrosis - CT abdomen and pelvis showing a 4mm right sided obstructing kidney stone at the proximal ureter with mild hydronephrosis - Rocephin 1g IV administered--hold on further abx at this time - Urology consulted: -It is possible, given his hx, that he will be able to pass the stone on his own -IV fluids -Flomax -Strain urine -OK to give diet today -NPO at Midnight -If he is unable to pass stone in the next 24 hours, will consider stent or outpatient trial of passage - Flomax 0.4mg ordered - Pain regimen: Tylenol 1 gram IV for mild pain, Morphine 2mg IV for moderate pain, Dilaudid 1mg for severe pain. - zofran prn for nausea - strain all urine, recommend stone analysis if captured Elevated serum creatinine - creatinine 1.46, BUN at 24 - baseline 1.2 - 1.4 - likely post-renal component given obstructing stone - continue NSS and flomax - trend BMP Dyslipidemia - continue home dose atorvastatin Chronic GERD - continue home dose esomeprazole Mild obstructive sleep apnea - CPAP ordered on admission DVT ppx: SCDs - hold off on chemo in the event of procedure Diet: Regular, NPO at midnight Dispo: Med/Surg Code: Full (2) Elevated serum creatinine: (3) Dyslipidemia: (4) Chronic GERD: (5) Mild obstructive sleep apnea: Admission and Anticipated Discharge Date Admission Date: October 10, 2021 Supervising Physician Co-Signing Physician Notes Attending attestation Pt seen and examined in concert with Dr. Radford. In agreement with the documented findings as noted in the resident documentation with any exceptions or additions as noted here. Somewhat somnolent but arousable and answering questions appropriately. Does complain of ongoing flank pain which is modulated but not entirely controlled by current pain medication regimen. On examination, S1/S2 nl RRR no MCG. CTAB. Abd examination with guarding 2/2 ongoing nephrolithiasis pain. Nephrolithiasis - urology consult - pain management, tamsulosin and fluids - stent vs. outpatient trial based on progress and symptoms Else see resident documentation as noted. Subjective Patient seen at bedside. Reporting 8/10 pain despite having received Dilaudid 0.5mg just before. He denies fever, chills, n/v, SOB, CP, palp currently. Does admit to some chills overnight when his pain was 10/10. Review of Systems Review of Systems: per subjective Physical Exam Physical Exam: GENERAL: A&Ox3. Uncomfortable due to pain CHEST/LUNGS: CTAB A/P. No crackles, wheezes, rales, rhonchi. HEART: RRR. No m/g/r. ABDOMEN: ND, soft. BS+ x4. + CVA tenderness. EXTREMITIES: No cyanosis, no clubbing, no edema SKIN: Warm and dry. No rashes or lesions. PSYCHIATRIC: Euthymic affect, no SI, no pressured speech, no hallucinations Results & Data Results & Data ([facility]) Vital Signs (Past 12 Hours) Vital Signs Temp Pulse Resp BP Pulse Ox 10/11/21 05:33 73 20 132/89 96 10/11/21 03:59 79 20 150/91 H 99 10/10/21 22:56 36.6 C 82 16 126/76 95 10/10/21 21:36 93 H 18 136/94 96 10/10/21 20:13 87 L 10/10/21 19:30 87 18 130/72 94 Resident Activity Tracking Resident Involvement: Resident Care Provided Care Provided: Adult Hospital Medicine
--- NOTE | 2021-10-11 07:30 | Urology Consultation ---
Date of Consultation October 11, 2021 Assessment & Plan (1) Calculus of proximal right ureter: -4mm right prox stone -It is possible, given his hx, that he will be able to pass the stone on his own -IV fluids -Flomax -Strain urine -OK to give diet today -NPO at Midnight -If he is unable to pass stone in the next 24 hours, will consider stent or outpatient trial of passage (2) Intractable abdominal pain: -Pain control (IV and Oral) per hospitalist service -Limit use of Toradol due to elevated Cr -Repeat Labs in AM History of Present Illness Reason for Consultation: Ureteral Calculus Attending Physician: Brian Cabral MD History of Present Illness 55 y/o male with a hx of kidney stones. Presented to the ER today with sudden onset of Right flank pain. Started earlier today. He reports cristo the pain is similar to kidney stones in the past. Nausea. No vomiting. No fevers. No chills. No hematuria. No dysuria. No increased urge or freq. No hest. No intermit. Occ nocturia. At CT Abd/Pelv was performed and showed: 1. A 4 mm obstructing stone within the proximal right ureter resulting in mild right hydronephrosis. 2. Right-sided nephrolithiasis. 3. Stable subcentimeter pulmonary nodules seen at the lung bases. 4. Slight improvement in the mildly enlarged distal periaortic and right common iliac lymph nodes. He was admitted to the hospital service for further evaluation. In 2018 he had a kidney stone which he was able to pass on his own. No fam hx of stones. His Cr is slightly elevated at 1.4, however it appears his baseline is 1.2-1.4. Allergies Allergy/AdvReac Type Severity Reaction Status Date / Time No Known Allergies Allergy Verified 10/10/21 18:30 Home Medications Medication Instructions Recorded Confirmed Type esomeprazole magnesium 40 mg 40 mg PO QPM #90 cap 06/19/21 10/10/21 Rx capsule,delayed release atorvastatin 10 mg tablet 10 mg PO QPM #90 tab 09/04/21 10/10/21 Rx Patient History Medical History (Updated 10/10/21 @ 21:05 by Marcela Vargas PA-C) GERD (gastroesophageal reflux disease) Kidney stones Migraine HX OF Sleep apnea cpap Urination frequency Surgical History History of colonoscopy History of tooth extraction Hx of vasectomy Family History Sister Breast cancer Family hx colonic polyps Mother Breast cancer Grandfather Myocardial infarction Father Family hx colonic polyps Other No family history of adverse response to anesthesia Denies family history of Ovarian cancer Prostate cancer Colorectal cancer Social History Smoking Status: Never smoker Second Hand Exposure: Yes (in childhood); Hx Alcohol Use: No Hx Substance Use: No Preferred Language: [place] Communication Ability: Effective Visual Impairment: No Limitations Hearing Ability: Normal 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 Beliefs That Will Affect Care: None marital status: Current Living Situation: Significant Other current occupational status: employed How many Children do You have: 2 Other Information That Helps Us Care for You: No Feels Safe at Home: Yes Childhood Exposure to Second-Hand Smoke: No caffeine: Yes during the past year weight has: increased > 10 lbs Dental Care, Regularly: Yes Physical Activity Frequency: Daily Seatbelt Use: always Sunscreen Use: Yes Assistive Devices: CPAP and Glasses Review of Systems Review of Systems: As above in HPI, otherwise unremarkable Physical Exam Constitutional: WD/WN, vitals as above Respiratory: normal respiratory effort, lungs clear to auscultation Cardiovascular: RRR, no murmur, no edema Gastrointestinal (Abdomen): normal bowel sounds, soft, nontender, no hepatosplenomegaly Skin: no rashes, warm and dry Psychiatric: A+Ox3, euthymic affect Genitourinary: no testicular masses, no penis abnormality Results & Data ([facility]) Vital Signs (Past 12 Hours) Vital Signs Temp Pulse Resp BP Pulse Ox 10/11/21 05:33 73 20 132/89 96 10/11/21 03:59 79 20 150/91 H 99 10/10/21 22:56 36.6 C 82 16 126/76 95 10/10/21 21:36 93 H 18 136/94 96 10/10/21 20:13 87 L 10/10/21 19:30 87 18 130/72 94 PG Care Time/CCT Total # of Minutes Spent Total Time Spent with Patient: Total time spent is greater than 50% in coordination of care (as documented) at patient's floor/unit and/or counseling patient: 60 Coding Level of Care Code 49434 Inpt Consult Level 4 Diagnoses Calculus of proximal right ureter N20.1 Intractable abdominal pain R10.9 Time Spent (min) 60
[2021-10-11] MEDS: SODIUM CHLORIDE 0.9% 1000ML 1,000 ML IV SCH (07:47)
[2021-10-11 08:57] LABS: Basophils # (auto) 0.02 K/uL (0-0.2); Basophils % (auto) 0.2 %; Eosinophils # (auto) 0.01 K/uL (0-0.5); Eosinophils % (auto) 0.1 %; Hematocrit (blood only) 44.8 % (42-52); Hemoglobin 15.7 g/dL (14.0-18.0); Immature Granulocytes # (auto) 0.02 K/uL (0.00-0.02); Immature Granulocytes % (auto) 0.2 %; Lymphocytes % (auto) 17.3 %; Mean Corpuscular Hemoglobin 30.5 pg (25-34); Mean Corpuscular Volume 87.2 fL (80-100); Mean Platelet Volume 10.7 fL (7.4-10.4); Monocytes # (auto) 0.36 K/uL (0.11-0.59); Monocytes % (auto) 3.9 %; Neutrophils # (auto) 7.23 K/uL (1.4-6.5); Neutrophils % (auto) 78.3 %; Platelet Count 157 K/uL (130-400); RDW Coefficient of Variation 12.5 % (11.5-14.5); RDW Standard Deviation 40.1 fL (36.4-46.3); Red Blood Count 5.14 M/uL (4.7-6.1); White Blood Count 9.24 K/uL (4.8-10.8)
[2021-10-11 09:24] LABS: Calcium 8.5 mg/dl (8.5-10.1); Creatinine Clr Calc Pharmacy 72.4 ml/min; Est GFR (Non-African American) 53.5 ml/min; Potassium 3.9 mmol/L (3.5-5.1)
[2021-10-11] MEDS: PANTOprazole 40 MG TAB PO SCH (20:27)
[2021-10-11] MEDS: ATORVASTATIN 10 MG TAB PO SCH (20:27)
[2021-10-12] MEDS: HYDROmorphone INJ 0.5 MG/0.5 ML SYR IV PRN ×5 (03:34→21:33)
--- NOTE | 2021-10-12 04:06 | Billing Data ---
Date of Service October 12, 2021 Coding Level of Care Code 82889 Initial Inpt Care Lvl 3
--- NOTE | 2021-10-12 06:46 | Hospitalist Progress Note ---
Date of Service October 12, 2021 Assessment & Plan (1) Hydronephrosis with renal and ureteral calculous obstruction: Plan: Mr. Piña is a 55 yo gentleman with a PMHx of a kidney stone who presented for sudden onset right flank pain. Renal/ureteral stone with hydronephrosis - CT abdomen and pelvis showing a 4mm right sided obstructing kidney stone at the proximal ureter with mild hydronephrosis - Rocephin 1g IV administered--hold on further abx at this time - Urology consulted: -It is possible, given his hx, that he will be able to pass the stone on his own -IV fluids -Flomax -Strain urine -NPO -Plan to take to OR tomorrow if stone doesn't pass overnight - Flomax 0.4mg ordered - Pain regimen: Tylenol 1 gram IV for mild pain, Morphine 2mg IV for moderate pain, Dilaudid 1mg for severe pain. - zofran prn for nausea - strain all urine, recommend stone analysis if captured Elevated serum creatinine - creatinine 1.46, BUN at 24 - baseline 1.2 - 1.4 - continue NSS and flomax - trend BMP Dyslipidemia - continue home dose atorvastatin Chronic GERD - continue home dose esomeprazole Mild obstructive sleep apnea - CPAP ordered on admission DVT ppx: SCDs - hold off on chemo in the event of procedure Diet: Regular, NPO at midnight Dispo: Med/Surg Code: Full (2) Elevated serum creatinine: (3) Dyslipidemia: (4) Chronic GERD: (5) Mild obstructive sleep apnea: Admission and Anticipated Discharge Date Admission Date: October 10, 2021 Supervising Physician Co-Signing Physician Notes Attending attestation Pt seen and examined in concert with Dr. Smith. In agreement with the documented findings as noted in the resident documentation with any exceptions or additions as noted here. Much less sedated on interaction today, feels that the pain has moved down inferiorly on the right flank and is better controlled on current medication re gimen. On examination, S1/S2 nl RRR no MCG. CTAB. Abd examination without TTP, R flank TTP present similar to previous. Nephrolithiasis - urology consult - continue IV and PO management, tamsulosin and fluids - per urology, continue surveillance x 1 more day. KUB ordered to determine movement of stone. stent vs. outpatient trial based on progress and symptoms Else see resident documentation as noted. Subjective Patient seen and evaluated at bedside this morning. No acute events overnight. Today patient reports his pain is improved from yesterday, currently at a 7/10 and tolerable. Nausea has resolved. No new symptoms. Patient denies CP, SOB, vomiting, lightheadedness, dizziness, and diarrhea. Review of Systems Review of Systems: See HPI Physical Exam Physical Exam: Constitutional: well-appearing, no acute distress CV: regular rhythm, no murmur appreciated, extremities well-perfused, no LE edema Resp: CTABL, no wheezes/rales/rhonchi appreciated, no increased work of breathing GI: soft, nondistended, nontender, BS normoactive MSK: mild right-sided flank tenderness Results & Data Results & Data ([facility]) Vital Signs (Past 12 Hours) Vital Signs Temp Pulse Resp BP Pulse Ox 10/11/21 22:14 36.8 C 75 18 145/86 H 94 Resident Activity Tracking Resident Involvement: Resident Care Provided Care Provided: Adult Hospital Medicine
[2021-10-12] MEDS: ACETAMINOPHEN 1,000 MG/100 ML VIAL IV PRN (11:23)
[2021-10-12] MEDS: SODIUM CHLORIDE 0.9% 1000ML 1,000 ML IV SCH ×2 (11:23→23:22)
--- NOTE | 2021-10-12 14:20 | XRay Report ---
KUB HISTORY: Follow up study in a patient with nephrolithiasis nephrolithiasis ?change COMPARISON: CT abdomen and pelvis 10/10/2021 FINDINGS: Nonobstructive bowel gas pattern. Mild gaseous distention of the large bowel. Renal shadow s are partially obscured by bowel gas. There are a few calculi of the right kidney redemonstrated ortega suring up to approximately 3 mm. Unchanged positioning of the 4 mm right ureteral calculus at the lev el of L3-L4. No pneumoperitoneum or pneumatosis. Surgical clips of the scrotum. No fracture. IMPRESSION: 1. Unchanged positioning of the 4 mm right ureteral calculus at the level of L3-L4. 2. Right nephrolithiasis redemonstrated. ACT 112: Negative or not required by law. The above report was generated using voice recognition software. It may contain grammatical, syntax o r spelling errors. Electronically signed by: Rowdy Paula M.D. 10/12/2021 2:18 PM
--- NOTE | 2021-10-12 16:38 | Urology Progress Note ---
Date of Service October 12, 2021 Assessment & Plan (1) Calculus of proximal right ureter: Plan: -4mm right prox stone -Same position on recent KUB -Pain control slightly improved -NPO at midnight again. -If unable to pass the stone, consider uscope/stent (2) Intractable abdominal pain: Plan: -Pain control (IV and Oral) per hospitalist service -Limit use of Toradol due to elevated Cr -Repeat Labs in AM Admission and Anticipated Discharge Date Admission Date: October 10, 2021 Subjective No acute events. Pain comes and goes. Pt states that the pain has changed slightly and wonders if the stone is moving. No hematuria. No dysuria. No fevers. No chills. Tolerated diet. KUB today showed 4mm right ureteral stone in similar position. Review of Systems Constitutional: as per Subjective / HPI Physical Exam Gastrointestinal (Abdomen): normal bowel sounds, soft, nontender, no hepatosplenomegaly Genitourinary: Mild right flank tenderness Results & Data ([facility] [place]) Vital Signs (Past 12 Hours) Vital Signs Temp Pulse Resp BP Pulse Ox 10/12/21 16:20 39.4 C H 113 H 20 146/66 H 96 10/12/21 16:11 36.9 C 76 16 127/78 96 10/12/21 08:00 36.9 C 76 16 123/75 92 PG Care Time/CCT Total # of Minutes Spent Total Time Spent with Patient: Total time spent is greater than 50% in coordination of care (as documented) at patient's floor/unit and/or counseling patient: Coding Level of Care Code 80498 Subseq Hosp Care Lvl 3 Diagnoses Calculus of proximal right ureter N20.1 Intractable abdominal pain R10.9
[2021-10-12] MEDS: ONDANSETRON INJ 2 MG/ML 2 ML VIAL IV PRN ×2 (17:31→21:33)
[2021-10-12] MEDS: PANTOprazole 40 MG TAB PO SCH (20:24)
[2021-10-12] MEDS: ATORVASTATIN 10 MG TAB PO SCH (20:24)
[2021-10-13] MEDS: HYDROmorphone INJ 0.5 MG/0.5 ML SYR IV PRN ×3 (01:23→10:01)
[2021-10-13] MEDS: ONDANSETRON INJ 2 MG/ML 2 ML VIAL IV PRN (05:53)
[2021-10-13 06:18] LABS: Basophils # (auto) 0.02 K/uL (0-0.2); Basophils % (auto) 0.2 %; Eosinophils # (auto) 0.04 K/uL (0-0.5); Eosinophils % (auto) 0.3 %; Hematocrit (blood only) 41.9 % (42-52); Hemoglobin 14.5 g/dL (14.0-18.0); Immature Granulocytes # (auto) 0.02 K/uL (0.00-0.02); Immature Granulocytes % (auto) 0.2 %; Lymphocytes # (auto) 1.91 K/uL (1.2-3.4); Lymphocytes % (auto) 15.3 %; Mean Corpuscular Hemoglobin 30.1 pg (25-34); Mean Corpuscular Hgb Conc 34.6 g/dL (32-36); Mean Corpuscular Volume 86.9 fL (80-100); Mean Platelet Volume 10.6 fL (7.4-10.4); Neutrophils # (auto) 9.01 K/uL (1.4-6.5); Platelet Count 149 K/uL (130-400); RDW Coefficient of Variation 12.3 % (11.5-14.5); RDW Standard Deviation 39.6 fL (36.4-46.3); Red Blood Count 4.82 M/uL (4.7-6.1)
[2021-10-13 06:49] LABS: BUN Creatinine Ratio 11.4 (10-20); Calcium 8.1 mg/dl (8.5-10.1); Creatinine Clr Calc Pharmacy 51.6 ml/min; Est GFR (African American) 41.2 ml/min; Est GFR (Non-African American) 35.6 ml/min
--- NOTE | 2021-10-13 07:04 | Hospitalist Progress Note ---
Date of Service October 13, 2021 Assessment & Plan (1) Hydronephrosis with renal and ureteral calculous obstruction: Plan: Mr. Piña is a 55 yo gentleman with a PMHx of a kidney stone who presented for sudden onset right flank pain. Obstructing right nephrolithiasis with hydronephrosis s/p ureteral stent placement - CT abdomen and pelvis showing a 4mm right sided obstructing kidney stone at the proximal ureter with mild hydronephrosis - Rocephin 1g IV administered--hold on further abx at this time - Urology consulted, performed right ureteral stent placement (10/13/20), procedure tolerated well - Continue flomax - Continue NSS @ 80mL/hr - Pain regimen: tylenol 1000mg q8h scheduled, oxycodone 5mg PO q4h prn moderate pain, morphine 2mg IV prn severe pain - Zofran prn for nausea - Strain all urine, recommend stone analysis if captured Elevated serum creatinine - Creatinine elevated to 2.0 (baseline 1.2), possibly related to hydronephrosis - Anticipate spontaneous resolution s/p stent placement - Continue NSS and flomax - Trend daily BMP Dyslipidemia - Continue home dose atorvastatin Chronic GERD - Continue home dose esomeprazole Mild obstructive sleep apnea - Continue CPAP DVT ppx: SCDs Diet: regular Dispo: med/surg Code: full (2) Elevated serum creatinine: (3) Dyslipidemia: (4) Chronic GERD: (5) Mild obstructive sleep apnea: Admission and Anticipated Discharge Date Admission Date: October 10, 2021 Supervising Physician Co-Signing Physician Notes Attending attestation Pt seen and examined in concert with Dr. Smith. In agreement with the documented findings as noted in the resident documentation with any exceptions or additions as noted here. Flank pain improved post-procedurally but still 6/10. On examination, S1/S2 nl RRR no MCG. CTAB. Abd NT/ND, BS +Ve Nephrolithiasis w/ LORRAINE - urology consult - continue IV and PO management, tamsulosin and fluids - add PO pain management to improve tolerance. Trend BMP in AM. h/o nephrolithiasis w/ hydronephrosis but no other evident renal dz. Else see resident documentation as noted. Subjective Patient seen and evaluated at bedside this morning. No acute events overnight. Pain decently-controlled. Plan to go to OR today for stent placement. Patient denies CP, SOB, vomiting, lightheadedness, dizziness, and diarrhea. Review of Systems Review of Systems: See HPI Physical Exam Physical Exam: Constitutional: well-appearing, no acute distress CV: regular rhythm, no murmur appreciated, extremities well-perfused, no LE edema Resp: CTABL, no wheezes/rales/rhonchi appreciated, no increased work of breathing GI: soft, nondistended, nontender, BS normoactive MSK: right-sided flank tenderness Results & Data Results & Data ([facility]) Vital Signs (Past 12 Hours) Vital Signs Temp Pulse Resp BP Pulse Ox 10/12/21 22:30 37.3 C 94 H 18 124/67 93 Resident Activity Tracking Resident Involvement: Resident Care Provided Care Provided: Adult Hospital Medicine
--- NOTE | 2021-10-13 08:16 | Anesthesiology Consultation ---
Date of Service October 13, 2021 Assessment & Plan (1) Encounter for pre-operative examination: History Surgery Operation Date: 10/13/21 06:35 Proposed Procedures p Cystoscopy - Bayron Romero MD s Ureteral Stent Insertion/Removal(Right) - Bayron Romero MD Height/Weight Height: 6 ft Weight: 109.7 kg Allergies Allergy/AdvReac Type Severity Reaction Status Date / Time No Known Allergies Allergy Verified 10/10/21 18:30 Medications Home Medications Medication Instructions Recorded Confirmed Last Taken esomeprazole magnesium 40 mg 40 mg PO QPM #90 cap 06/19/21 10/10/21 10/09/21 capsule,delayed release atorvastatin 10 mg tablet 10 mg PO QPM #90 tab 09/04/21 10/10/21 10/09/21 Active Medications Generic Name Dose Route Start Last Admin Trade Name Freq PRN Reason Stop Dose Admin Atorvastatin Calcium 10 mg 10/10/21 21:48 10/12/21 20:24 Atorvastatin 10 Mg Tab PO 11/09/21 21:47 10 mg QPM XIAO Administration Hydromorphone HCl 1 mg 10/11/21 11:52 10/13/21 05:53 Hydromorphone Inj 0.5 Mg/0.5 Ml Syr IV 10/24/21 21:47 1 mg Q1H PRN Administration Pain-SEVERE Acetaminophen 1,000 mg in 100 mls @ 400 mls/hr 10/10/21 21:48 10/12/21 12:00 Ofirmev IV 10/13/21 21:47 Infused Q8H PRN Infusion Mild pain Sodium Chloride 1,000 mls @ 80 mls/hr 10/12/21 09:45 10/13/21 05:47 Nss 1000ml IV 10/14/21 09:44 80 mls/hr .[id number] XIAO Infusion Ondansetron HCl 4 mg 10/10/21 21:48 10/13/21 05:53 Ondansetron Inj 2 Mg/Ml 2 Ml Vial IV 11/09/21 21:47 4 mg Q6H PRN Administration Nausea Pantoprazole Sodium 40 mg 10/10/21 22:30 10/12/21 20:24 Pantoprazole 40 Mg Tab PO 11/09/21 22:29 40 mg QPM XIAO Administration NPO Date Last Intake of Fluids: 10/12/21 Time Last Intake of Fluids: 23:59 Date Last Intake of Solids: 10/12/21 Time Last Intake of Solids: 23:59 Past Medical History Medical History (Updated 10/13/21 @ 08:16 by Maggie Sebastian MD) GERD (gastroesophageal reflux disease) Kidney stones Migraine HX OF Sleep apnea cpap Urination frequency Past Family History Family History Sister Breast cancer Family hx colonic polyps Mother Breast cancer Grandfather Myocardial infarction Father Family hx colonic polyps Other No family history of adverse response to anesthesia Denies family history of Ovarian cancer Prostate cancer Colorectal cancer Past Surgical History Surgical History History of colonoscopy History of tooth extraction Hx of vasectomy Social History Smoking Status: Never smoker Hx Alcohol Use: No Hx Substance Use: No substance use type: does not use Physical Exam Vital Signs Last Vital Signs Temp 37.5 C 10/13/21 07:11 Pulse 88 10/13/21 07:11 Resp 16 10/13/21 07:11 BP 130/73 10/13/21 07:11 Pulse Ox 92 10/13/21 07:11 Testing Laboratory Results 10/13/21 05:55 10/13/21 05:55 Urine Color Yellow 10/10/21 17:47 Urine Appearance Clear (Clear) 10/10/21 17:47 Urine pH 5.5 (4.5-7.5) 10/10/21 17:47 Ur Specific Spencer 1.022 (1.000-1.030) 10/10/21 17:47 Urine Protein Negative (Negative) 10/10/21 17:47 Urine Glucose (UA) Negative (Negative) 10/10/21 17:47 Urine Ketones Trace (Negative) H 10/10/21 17:47 Urine Nitrite Negative (Negative) 10/10/21 17:47 Ur Leukocyte Esterase Negative (Negative) 10/10/21 17:47 Urine WBC (Auto) 1-5 /hpf (0-5) 10/10/21 17:47 Urine RBC (Auto) 10-30 /hpf (0-4) H 10/10/21 17:47 U Hyaline Cast (Auto) 1-5 /lpf (0-5) 10/10/21 17:47 U Epithel Cells (Auto) 20-30 /lpf (0-5) H 10/10/21 17:47 Urine Bacteria (Auto) Negative (Negative) 10/10/21 17:47
[2021-10-13] MEDS ORDERED: MIDAZOLAM HCL 1 MG/ML 2ML VIAL ONE (09:19)
[2021-10-13] MEDS ORDERED: fentaNYL citrate 100 MCG/2 ML VIAL ONE (09:19)
[2021-10-13] MEDS ORDERED: LIDOCAINE 2% 2 ML VIAL/AMP(20MG/ML) INFIL ONE (09:23)
[2021-10-13] MEDS ORDERED: PROPOFOL IV EMULSION 10 MG/ML 20 ML VIAL IV ONE (09:23)
[2021-10-13] MEDS ORDERED: ONDANSETRON INJ 2 MG/ML 2 ML VIAL ONE (09:23)
[2021-10-13] MEDS ORDERED: ONDANSETRON INJ 2 MG/ML 2 ML VIAL IV PRN (11:07)
[2021-10-13] MEDS ORDERED: fentaNYL citrate 100 MCG/2 ML VIAL IV PRN (11:07)
[2021-10-13] MEDS ORDERED: ePHEDrine sulfate 50 MG/ML AMP IV PRN (11:07)
[2021-10-13] MEDS ORDERED: ATROPINE SULFATE 0.1 MG/ML 10ML SYR IV PRN (11:07)
[2021-10-13] MEDS ORDERED: HYDROmorphone INJ 1 MG/ML SYRINGE IV PRN (11:07)
--- NOTE | 2021-10-13 11:12 | History & Physical Bridge Note ---
Date of Service October 13, 2021 History & Physical Bridge Note I have examined the patient, reviewed the History & Physical and in the interval since the performance of the History & Physical I have noted the following changes of clinical significance: no changes noted Pt has right ureteral stone. Unable to pass on its own.
--- NOTE | 2021-10-13 11:40 | Post Operative Brief Note ---
Immediate Post Op Note v1 Date of Surgery October 13, 2021 Pre & Post Diagnosis Operation Date: 10/13/21 06:35 <No data on this case meets the specified criteria> Right Ureteral Calculus I identified the patient and participated in the time-out.: Yes Procedure Operation Date: 10/13/21 06:35 <No data on this case meets the specified criteria> Cystoscopy, Right Retrograde Pyelogram, Right Ureteral Stent Placement Surgeon Bayron Romero MD Finance Admin None Estimated Blood Loss 0 Findings Consistent with Post-Op Diagnosis 4mm Right Proximal Ureteral Calculus
[2021-10-13] MEDS ORDERED: DIATRIZOATE MEGLUMINE 30% 100ML VIAL INSTIL PRN (11:50)
[2021-10-13] MEDS ORDERED: ceFAZolin 1000MG 1,000 MG/7.5 ML SYR IV ONE (11:51)
--- NOTE | 2021-10-13 11:51 | Fluoroscopy Report ---
INTRAOPERATIVE RADIOGRAPHS CLINICAL HISTORY: Right ureteral stent placement. Fluoroscopy time: 11 seconds. FINDINGS: 2 spot fluoroscopic views of the right abdomen are correlated with abdominal CT dated 10/10. The images show the proximal and distal ends of a right ureteral stent in appropriate position . IMPRESSION: Intraoperative images from a right ureteral stent placement procedure as above. Electronically signed by: Nirav Gaming M.D. 10/13/2021 11:50 AM
--- NOTE | 2021-10-13 12:11 | Anesthesiology Progress Note ---
Date of Service October 13, 2021 Anesthesia Post Procedure Vital Signs Vital Signs: Temp Pulse Pulse Resp BP BP Pulse Ox 10/13/21 12:05 36.6 C 75 16 136/78 94 10/13/21 11:55 87 16 133/81 96 10/13/21 11:46 36.7 C 83 16 130/82 94 10/13/21 07:11 37.5 C 88 16 130/73 92 10/12/21 22:30 37.3 C 94 H 18 124/67 93 10/12/21 16:11 36.9 C 76 16 127/78 96 Pain Intensity Right Flank: Pain Intensity: 7 Transfer of Care Handoff Completed per policy Notes Mental Status: alert / awake / arousable and participated in evaluation Patient Amnestic to Procedure: Yes Nausea / Vomiting: adequately controlled Pain: adequately controlled Airway Patency, RR, SpO2: stable & adequate BP & HR: stable & adequate Hydration State: stable & adequate Anesthetic Complications: no major complications apparent and Pt Satisfied with anesthetic care
[2021-10-13] MEDS: SODIUM CHLORIDE 0.9% 1000ML 1,000 ML IV SCH (12:37)
[2021-10-13] MEDS: oxyCODONE HCL IR 5 MG TAB (IMMEDIATE RELEASE) PO PRN ×3 (14:33→22:54)
[2021-10-13] MEDS: ACETAMINOPHEN 500 MG TAB PO SCH ×2 (14:33→22:08)
[2021-10-13] MEDS: ATORVASTATIN 10 MG TAB PO SCH (20:51)
[2021-10-13] MEDS: PANTOprazole 40 MG TAB PO SCH (20:51)
[2021-10-14] MEDS: SODIUM CHLORIDE 0.9% 1000ML 1,000 ML IV SCH (00:40)
[2021-10-14] MEDS: ACETAMINOPHEN 500 MG TAB PO SCH (05:51)
[2021-10-14] MEDS: oxyCODONE HCL IR 5 MG TAB (IMMEDIATE RELEASE) PO PRN (05:53)
[2021-10-14 08:04] LABS: Basophils # (auto) 0.03 K/uL (0-0.2); Basophils % (auto) 0.4 %; Eosinophils # (auto) 0.14 K/uL (0-0.5); Hematocrit (blood only) 39.2 % (42-52); Hemoglobin 13.5 g/dL (14.0-18.0); Immature Granulocytes # (auto) 0.01 K/uL (0.00-0.02); Immature Granulocytes % (auto) 0.1 %; Lymphocytes # (auto) 2.12 K/uL (1.2-3.4); Lymphocytes % (auto) 30.3 %; Mean Corpuscular Hemoglobin 30.4 pg (25-34); Mean Corpuscular Hgb Conc 34.4 g/dL (32-36); Mean Corpuscular Volume 88.3 fL (80-100); Mean Platelet Volume 10.5 fL (7.4-10.4); Monocytes # (auto) 0.77 K/uL (0.11-0.59); Neutrophils # (auto) 3.92 K/uL (1.4-6.5); Neutrophils % (auto) 56.2 %; Platelet Count 136 K/uL (130-400); RDW Coefficient of Variation 12.6 % (11.5-14.5); RDW Standard Deviation 40.6 fL (36.4-46.3); Red Blood Count 4.44 M/uL (4.7-6.1); White Blood Count 6.99 K/uL (4.8-10.8)
--- NOTE | 2021-10-14 08:07 | Hospitalist Progress Note ---
Date of Service October 14, 2021 Assessment & Plan Admission and Anticipated Discharge Date Admission Date: October 10, 2021 Results & Data Results & Data ([facility]) Vital Signs (Past 12 Hours) Vital Signs Temp Pulse Resp BP BP Pulse Ox 10/14/21 07:28 37.0 C 66 16 111/68 98 10/14/21 03:57 36.8 C 73 16 131/79 97 10/13/21 23:09 37.1 C 76 18 111/66 93
--- NOTE | 2021-10-14 09:25 | Urology Progress Note ---
Date of Service October 14, 2021 Assessment & Plan (1) Hydronephrosis with obstructing calculus: Plan: 55yo M admitted with intractable right flank pain secondary to a 4 mm obstructing stone within the proximal right ureter resulting in mild right hydronephrosis. - Pt POD#1 s/p cystoscopy, right retrograde pyelogram, right ureteral stent placement - Doing well, progressing as expected. - Afebrile, lab work reviewed - creatinine 1.27, WBC 6.99 - Tolerating right ureteral stent with minimal bother - Voiding without issue. - Okay to d/c from perspective - Recommend d/c with Tamsulosin, prn Pyridium and prn pain medication for stent management - Expected clinical course reviewed, all questions answered - Will arrange outpatient follow-up with our service for definitive stone management - Thank you for allowing us to participate in the acute care of Mr. Piña. Please reconsult us with additional questions, concerns or changes in patient status. Admission and Anticipated Discharge Date Admission Date: October 10, 2021 Subjective Pt examined at bedside this AM. Awake, resting in bed on arrival. No fevers overnight. Minimal pain. Tolerating PO diet. Denies nausea or vomiting. Voiding without issue. No hematuria. Some mild dysuria. Review of Systems Constitutional: as per Subjective / HPI Gastrointestinal: as per Subjective / HPI Genitourinary: + as per Subjective / HPI Physical Exam Constitutional: well developed and well nourished; no acute distress and not ill appearing Respiratory: normal respiratory effort and able to speak in complete sentences; no labored breathing and no audible wheezes Gastrointestinal (Abdomen): Inspection/Auscultation: abdomen normal to inspection; abdomen not distended Musculoskeletal: Head/Neck/Chest: normocephalic Skin: No visible rashes or lesions to exposed skin areas Neurologic: moves all extremities and awake Psychiatric: Orientation: alert, oriented x 3 and cooperative Results & Data ([facility]) Vital Signs (Past 12 Hours) Vital Signs Temp Pulse Resp BP BP Pulse Ox 10/14/21 07:28 37.0 C 66 16 111/68 98 10/14/21 03:57 36.8 C 73 16 131/79 97 10/13/21 23:09 37.1 C 76 18 111/66 93 PG Care Time/CCT Total # of Minutes Spent Total Time Spent with Patient: Total time spent is greater than 50% in coordination of care (as documented) at patient's floor/unit and/or counseling patient: Coding Level of Care Code 27858 Subseq Hosp Care Lvl 2 Diagnoses Hydronephrosis with obstructing calculus N13.2
[2021-10-14 09:43] LABS: BUN Creatinine Ratio 14.8 (10-20); Calcium 8.2 mg/dl (8.5-10.1); Creatinine Clr Calc Pharmacy 82.1 ml/min; Est GFR (African American) 72.2 ml/min; Est GFR (Non-African American) 62.3 ml/min; Potassium 3.9 mmol/L (3.5-5.1)
--- NOTE | 2021-10-14 11:36 | Discharge Summary ---
Date of Service October 14, 2021 Admission HPI Per Admitting Provider Mr. Piña is a 55 yo gentleman with a PMHx of kidney stones who came to the [facility] ED for sudden onset R flank pain that started 1 hour prior to arrival. He likens the nature of the pain to that which he felt with his previous kidney stone in 2018. Fortunately, he did not require any stent placement or lithotripsy with the previous stone - it passed within several hours of pain onset. He denies any dysuria or increased urinary frequency. He is nauseous but has not vomited. He denies any family history of kidney stones. He is a non-smoker. Drinks Etoh on a social basis only. He was fully immunized against COVID 19. On arrival to the ED, he was afebrile with normal HR. His BP was slightly above goal at 158/85. He was breathing well on room air. His CBC was normal. His Cr was 1.46, BUN at 24. Electrolytes WNL. UA 2+ blood, neg for infection. CT of abdomen and pelvis showing a 4mm obstructing stone within the R proximal ureter with mild hydronephrosis. He was given Tylenol, 1g IV, Morphine 6mg IV, Dilaudid 1mg IV for pain control; zofran and 2 liters of NSS. Principal Diagnosis Hydronephrosis with obstructing calculus Discharge Exam GENERAL: A&Ox3. NAD. CHEST/LUNGS: CTAB A/P. No crackles, wheezes, rales, rhonchi. HEART: RRR. No m/g/r. ABDOMEN: NT/ND, soft. BS+ x4 SKIN: Warm and dry. No rashes or lesions. Discharge Data Allergies Allergy/AdvReac Type Severity Reaction Status Date / Time No Known Allergies Allergy Verified 10/10/21 18:30 Consultations 10/10/21 20:20 ED Decision to Admit Stat 10/10/21 21:48 Consult Urology Routine Procedures Performed Operation Date: 10/13/21 06:35 Actual Procedures p Right Ureteral Stent Insertion(Right) - Bayron Romero MD s Cystoscopy with right retrograde(Right) - Bayron Romero MD Ordered Studies 10/10/21 16:38 CT abd pelvis wo con Stat 10/13/21 FL retrograde includes kub Routine Hospital Course (1) Hydronephrosis with renal and ureteral calculous obstruction: Mr. Piña is a 55 yo gentleman with a PMHx of a kidney stone who presented for sudden onset right flank pain. Obstructing right nephrolithiasis with hydronephrosis s/p ureteral stent placement - CT abdomen and pelvis showing a 4mm right sided obstructing kidney stone at the proximal ureter with mild hydronephrosis - Rocephin 1g IV administered--hold on further abx at this time - Urology consulted, performed right ureteral stent placement (10/13/20), procedure tolerated well -- stable for DC, will f/u in 1-2 weeks, continue tamsulosin, Pyridium, pain mngmt at DC - To be DC with 2 days Pyridium, flomax daily x2 weeks or until stone passage/otherwise instructed by Urology, and short course of oxycodone (instructed to use only for breakthrough pain not controlled by prn Tylenol) Elevated serum creatinine - resolved at DC - Creatinine elevated to 2.0 (baseline 1.2), possibly related to hydronephrosis - Spontaneously resolved s/p stent placement Dyslipidemia - Continued home dose atorvastatin Chronic GERD - Continued home dose esomeprazole Mild obstructive sleep apnea - Continue CPAP Dispo: Home - self care, f/u with Urology and PCP (2) Elevated serum creatinine: (3) Dyslipidemia: (4) Chronic GERD: (5) Mild obstructive sleep apnea: Total Time Total Time Spent Total Time Spent (In Minutes): see attending attestation Discharge Plan Discharge Items Patient Disposition: Home - Self-Care Reason For Visit: KIDNEY STONE Discharge Diagnosis: Kidney stone Activity: Per Instructions section Non-emergency contact: Primary Care Provider and Urologist Call non-emergency contact if: you have any medication questions and your symptoms worsen Follow-up/Referrals: Brian Moncada MD [Physician] - (Office will call patient with appointment date and time) Haydee Foley MD [Primary Care Provider] - 10/28/21 4:00 pm (Appointment will be with BARRERA Mckinnon) Diet: Regular Addtl Attending Provider Instructions: You were admitted to [facility] due to severe lower back pain. This was found to be due to a 4 mm obstructing kidney stone. As such, urology was consulted and recommended stent placement. You underwent surgery on 10/13/2021. You tolerated this well and your pain was well controlled. As such, you will be discharged with some medications to help with urinary symptoms and hopefully to expel your kidney stone. These medications are tamsulosin, Pyridium, and as needed Percocet. These medications will be sent to your preferred pharmacy. You will follow up with Urology for continued post-operative care. We recommend that you follow with your PCP for continued care. Pending Studies at Discharge: No Stand-Alone Forms: My [facility], Smoking Cessation Medications and DC Order Prescriptions: New tamsulosin 0.4 mg capsule 0.4 mg PO DAILY 14 Days Qty: 14 RF: 0 phenazopyridine [Pyridium] 200 mg tablet 200 mg PO Q8H PRN (Reason: pain) Qty: 6 RF: 0 oxycodone 5 mg tablet 5 mg PO Q8H PRN (Reason: severe pain (scale score 7-10)) Qty: 10 RF: 0 sennosides-docusate sodium [Senna Plus] 8.6-50 mg tablet 1 tab-cap PO BID Qty: 14 RF: 0 Continued esomeprazole magnesium 40 mg capsule,delayed release(DR/EC) 40 mg PO QPM Qty: 90 RF: 1 atorvastatin 10 mg tablet 10 mg PO QPM Qty: 90 RF: 1 Discharge Orders: Discharge Order (Routine); Ordered 10/14/21 Ordered By: Ace Mcnulty/Other Patient Handouts: Kidney Stones Expectant Tx Admission Data Admit Date/Time: 10/10/21 19:41 Attending Provider: Ace Gupta Admit Provider: Ayse Garber Primary Care Provider: Haydee Foley Other Providers: Shady Anguiano ; Bayron Romero Other Interventions: Discharge Summary Assessment (RN) Last Done: 10/14/21 10:42 Supervising Physician Co-Signing Physician Notes During face to face encounter with the patient, obtained history of hospital course, and had a brief physical examination. Discussed plan of care with patient and Dr. Lai. I reviewed above note and agree with it. Patient will be discharged after being admitted with: obstructing ureteral stone, s/p stent placement. Patient will have paion medicine, flomax and pyridium. Patient will followup with Urology as an outpatient. Resident Activity Tracking Resident Involvement: Resident Care Provided Care Provided: Adult [facility] Medicine
--- NOTE | 2021-10-16 09:05 | Billing Data ---
Date of Service October 14, 2021 Coding Level of Care Code D/C DAY MANAGEMENT >30 MINS Time Spent (min) 35
--- NOTE | 2021-10-19 09:30 | Operative Report (OR) ---
DATE OF OPERATION: 10/13/2021. SURGEON: Bayron Romero MD. GAME AND FISH PROTECTOR: None. PREOPERATIVE DIAGNOSIS: Right ureteral calculus. POSTOPERATIVE DIAGNOSIS: Right ureteral calculus. PROCEDURE: Cystoscopy, right retrograde pyelogram, right ureteral stent placement. ANESTHESIA: General endotracheal. COMPLICATIONS: None. SPECIMENS: None. DRAINS: A 6-Hungarian x 26 cm ureteral stent. ESTIMATED BLOOD LOSS: Minimal. CONDITION: Stable. INDICATIONS: The patient has a history of kidney stones. He recently presented with right sided fla nk pain. This showed a 4-5 mm mid ureteral calculus. He was observed in the hospital for several da ys, but after he was unable to pass it, he presented for surgical intervention. DESCRIPTION OF PROCEDURE: The patient was brought to the operative suite and positively identified, placed on the table in the supine position. After the induction of general anesthesia, he was placed in the dorsal lithotomy position. The genitalia was prepped and draped in a sterile fashion. Preop erative antibiotics were administered and a timeout was performed. A rigid cystoscope was passed via the urethra in the bladder. The urethra was normal. The prostate was mildly enlarged. The bladder was unremarkable. I turned my attention towards the right ureteral orifice. This was intubated with an open-ended cath eter and a retrograde pyelogram was performed confirming a filling defect in the proximal ureter. Th e ureter was quite snug distal to this and I did not feel like a scope would fit without significant dilation. At this time, a sensor wire was passed up the ureter beyond the stone into the renal pelvi s and a 6-Hungarian x 26 cm ureteral stent was placed with a good curl seen proximally and distally. Th e strings were cut short on the stent and the bladder was drained. The patient tolerated the procedure well. Sponge and needle counts were correct, taken to the PACU i n stable condition. He will follow up in 1-2 weeks to discuss outpatient treatment of the stone with either staged ureteroscopy or shockwave lithotripsy. Job ID: [id number]
== END 2021-10-14 13:03 | disposition home or self-care (01) | DRG 661 ==
LOC: ED 16:17 → SUATTDRO 19:41 → EDINP 19:41 → 3N 10-11 17:59

== ENCOUNTER 2025-05-08 11:02 | Observation (INO) ==
--- NOTE | 2025-05-08 11:42 | Emergency Department Note ---
History of Present Illness General Chief complaint: Back Injury/Pain Stated complaint: SEVERE BACK SPASMS Time Seen by Provider: 05/08/25 11:32 History of Present Illness Maximum Pain Intensity: 8 This is a 59-year-old male that presents to the emergency department via private vehicle with complaints of "back pain". The patient notes that for the past few days he has been experiencing right low back pain. No trauma. No injury. He notes history of back pain but not in this location. Normally he notes the pain is higher in the thoracic area. He denies any fevers, chills, vomiting. He does have some nausea. No abdominal pain. Pain is worse with movement and mildly better with rest. He denies any lower extremity weakness, bowel or bladder incontinence, numbness or tingling in the genital region. Current pain 05/21 Home Medications Medication Instructions Recorded Confirmed Type CPAP Machine #1 ea 07/21/23 05/03/25 Rx esomeprazole magnesium 40 mg 40 mg PO HS #90 caps 01/30/25 05/08/25 Rx capsule,delayed release (Nexium) baclofen 10 mg tablet 10 mg PO BID PRN muscle spasm #60 04/04/25 05/08/25 Rx tabs ibuprofen 200 mg tablet 200 mg PO Q6H PRN Pain 05/08/25 05/08/25 History Allergies Allergy/AdvReac Type Severity Reaction Status Date / Time No Known Drug Allergies Allergy Verified 05/08/25 15:04 Past Med/Surg History Problem List Intractable back pain (Acute) Thoracic back pain Abnormal smell Sensorineural hearing loss, bilateral Arthralgia Nasal congestion Lumbago Piriformis syndrome Protrusion of thoracic intervertebral disc Thoracic spine pain Chronic kidney disease with active medical management without dialysis, stage 2 (mild) History of colon polyps Vitamin D deficiency (Chronic) Tinnitus of both ears (Chronic) Osteopenia (Chronic) Nephrolithiasis (Chronic) Left asymmetrical SNHL (Chronic) Chronic GERD (Chronic) Erectile dysfunction (Chronic) Mild obstructive sleep apnea (Chronic) Multiple pulmonary nodules (Chronic) Hip pain, chronic (Chronic) Intra-abdominal lymphadenopathy (Chronic) Hyperglycemia (Chronic) Dyslipidemia (Chronic) Chronic rhinitis (Chronic) Myofascial pain S/P ureteral stent placement 10/13/2021: MAC. No issues per anesthesia postop progress note. Medical History Dyslipidemia Tinnitus Pulmonary nodules Hydronephrosis with renal and ureteral calculous obstruction Urination frequency Sleep apnea Kidney stones GERD (gastroesophageal reflux disease) Migraine Surgical History History of cystoscopy History of esophagogastroduodenoscopy (EGD) Hx of vasectomy History of tooth extraction History of colonoscopy Family History Sister Breast cancer Family hx colonic polyps Mother Breast cancer Grandfather Myocardial infarction Father Family hx colonic polyps Other No family history of adverse response to anesthesia Denies family history of Ovarian cancer Prostate cancer Colorectal cancer Social History Smoking Status: Never smoker Second Hand Exposure: Yes (as a child, father smoked); Do You Dip or Chew Tobacco: No; Hx Alcohol Use: No Hx Substance Use: No Preferred Language: Indian Communication Ability: Effective Visual Impairment: No Limitations Hearing Ability: Normal Poker Dealer Required: No Beliefs That Will Affect Care: None marital status: Current Living Situation: Spouse and Family Current Living Situation Comment: partner and her 4 kids current occupational status: employed How many Children do You have: 2 Other Information That Helps Us Care for You: No Feels Safe at Home: Yes Safety Concerns: Feels Safe At This Time Childhood Exposure to Second-Hand Smoke: No Diet: regular caffeine: Yes during the past year weight has: increased > 10 lbs Dental Care, Regularly: Yes Physical Activity Frequency: Daily Seatbelt Use: always Sunscreen Use: Yes Assistive Devices: Cane and CPAP Assistive Devices Comment: pt report he has not been wearing his CPAP at home Review of Systems A total of 10 systems reviewed and were otherwise negative Physical Exam Vital Signs Vital Signs - 24 hr 05/08/25 11:13 05/08/25 14:33 Temperature 36.6 C Temperature Source Temporal Artery Scan Pulse Rate 80 Pulse Rate [Apical] 57 L Respiratory Rate 19 17 Respiratory Effort / Characteristics Non-Labored Spontaneous Respiratory Depth Normal Respiratory Pattern Regular Blood Pressure 118/80 Blood Pressure [Left Arm] 133/84 Blood Pressure Mean 92 Blood Pressure Mean [Left Arm] 100 Pulse Oximetry 96 97 Oxygen Delivery Method Room Air Room Air Sepsis Recent Fever Within 48 Hours No Sepsis New/Unexplained Change in Mental Status N/A Sepsis Action Taken by Nursing No Action Required VITAL SIGNS - Vital signs and nursing notes were reviewed. Stable and afebrile. GENERAL -59-year-old male appearing his stated age who is in no acute distress. Communicates well with provider and answers questions appropriately. SKIN - Without rashes. No meningeal or petechial rash. HEAD - NC/AT. EYES - PERRL with EOMI bilaterally. Sclera anicteric. EARS - No deformities of external structures noted on gross examination bilaterally. NOSE - Midline and without cyanosis. No epistaxis or purulent drainage noted. MOUTH/OROPHARYNX - Without perioral cyanosis. NECK - Neck with FROM. No nuchal rigidity. LUNGS - CTA CARDIAC - RRR ABDOMEN - Abdominal contour normal without pulsations or visible masses. BS normoactive all four quadrants. No tenderness, palpable masses, hepatosplenomegaly, or ascites noted. EXTREMITIES - No clubbing or peripheral cyanosis. No pretibial edema present. +5/5 strength noted in UE/LE bilaterally. MSKthere is reproducible tenderness palpation overlying the paraspinous musculature of the right greater than left L-spine. NEUROLOGIC - Cranial nerves II through XII grossly intact. Sensory intact to light touch throughout lower extremities. PSYCH -alert, oriented and pleasant on exam. Course Administered Medications Acetaminophen (Acetaminophen 500 Mg Tab) 1,000 mg PO TID [facility] Stop: 06/07/25 20:59 Last Admin: 05/08/25 21:16 Dose: 1,000 mg Documented By: VICKY Artificial Tears (Artificial Tears) 1 drops OPB QID PRN PRN Reason: Dryness Stop: 06/07/25 21:24 Last Admin: 05/08/25 23:22 Dose: 1 drops Documented By: ATS Baclofen (Baclofen 10 Mg Tab) 10 mg PO BID [facility] Stop: 06/07/25 20:59 Last Admin: 05/08/25 21:19 Dose: 10 mg Documented By: ATS Diclofenac Sodium (Diclofenac Sod 1% Gel 100 Gm Tube) 4 gm EXT BID [facility]; Protocol Stop: 06/07/25 20:59 Last Admin: 05/08/25 21:20 Dose: 4 gm Documented By: VICKY Hydromorphone HCl (Hydromorphone Inj 0.5 Mg/0.5 Ml Syr) 0.25 mg IV Q6H PRN PRN Reason: Severe Pain (Scale 7, 8, 9,10) Stop: 05/22/25 18:34 Last Admin: 05/08/25 21:15 Dose: 0.25 mg Documented By: VICKY Magnesium Sulfate/Dextrose (Magnesium Sulfate / D5w) 1 gm in 100 mls @ 50 mls/hr IV Q2H [facility] Stop: 05/09/25 02:34 Last Admin: 05/09/25 00:15 Dose: 50 mls/hr Documented By: Infusion: 05/09/25 00:15 Dose: Infused Documented By: Admin: 05/08/25 22:17 Dose: 50 mls/hr Documented By: Infusion: 05/08/25 22:06 Dose: Infused Documented By: Admin: 05/08/25 20:13 Dose: 50 mls/hr Documented By: VICKY Ibuprofen (Ibuprofen 600 Mg Tab) 600 mg PO Q8H [facility] Stop: 06/07/25 18:34 Last Admin: 05/08/25 20:13 Dose: 600 mg Documented By: VICKY Miscellaneous (Remove Lidoderm Patch) 1 each N/A DAILY@2100 [facility] Stop: 06/07/25 20:59 Last Admin: 05/08/25 21:26 Dose: 1 each Documented By: VICKY Pantoprazole Sodium (Pantoprazole 40 Mg Tab) 40 mg PO HS [facility] Stop: 06/07/25 20:59 Last Admin: 05/08/25 21:19 Dose: 40 mg Documented By: VICKY Discontinued Medications Hydromorphone HCl (Hydromorphone Inj 0.5 Mg/0.5 Ml Syr) 0.5 mg IV NOW STA Stop: 05/08/25 11:40 Last Admin: 05/08/25 11:56 Dose: 0.5 mg Documented By: PRAVEENA Hydromorphone HCl (Hydromorphone Inj 0.5 Mg/0.5 Ml Syr) 0.25 mg IV NOW STA Stop: 05/08/25 14:25 Last Admin: 05/08/25 14:31 Dose: 0.25 mg Documented By: PRAVEENA Hydromorphone HCl (Hydromorphone Inj 0.5 Mg/0.5 Ml Syr) 0.25 mg IV NOW STA Stop: 05/08/25 15:20 Last Admin: 05/08/25 15:34 Dose: 0.25 mg Documented By: ANT Ioversol (Optiray 320 100ml) 94 ml IV ONCE ONE Stop: 05/08/25 12:57 Last Admin: 05/08/25 12:57 Dose: 94 ml Documented By: KEY Lidocaine (Lidocaine 5% 1 Patch) 1 patch TD NOW STA Stop: 05/08/25 11:41 Last Admin: 05/08/25 11:56 Dose: 1 patch Documented By: PRAVEENA Ondansetron HCl (Ondansetron Inj 2 Mg/Ml 2 Ml Vial) 4 mg IV NOW STA Stop: 05/08/25 11:40 Last Admin: 05/08/25 11:55 Dose: 4 mg Documented By: PRAVEENA Medical Decision Making Laboratory Data 05/08/25 11:54 05/08/25 11:54 Lab Results 05/08/25 Range/Units 11:54 WBC 5.87 (4.8-10.8) K/ul RBC 5.13 (4.70-6.10) M/uL Hgb 15.7 (14.0-18.0) g/dl Hct 44.4 (42.0-52.0) % MCV 86.5 (80.0-100.0) fL MCH 30.6 (25.0-34.0) pg MCHC 35.4 (32.0-36.0) g/dL RDW Std Deviation 38.5 (36.4-46.3) fL RDW Coeff of Rick 12.2 (11.5-14.5) % Plt Count 159 (130-400) K/uL MPV 10.9 (9.4-12.4) fL Immature Gran % (Auto) 0.2 % Neut % (Auto) 58.7 % Lymph % (Auto) 32.2 % Mclennan % (Auto) 7.3 % Eos % (Auto) 0.9 % Baso % (Auto) 0.7 % Neut # (Auto) 3.45 (1.40-6.50) K/uL Lymph # (Auto) 1.89 (1.20-3.40) K/uL Mclennan # (Auto) 0.43 (0.11-0.59) K/uL Eos # (Auto) 0.05 (0.00-0.50) K/uL Baso # (Auto) 0.04 (0.00-0.20) K/uL Immature Gran # (Auto) 0.01 (0.01-0.20) K/uL Sodium 142 (136-145) mmol/L Potassium 4.0 (3.5-5.1) mmol/L Chloride 110 H (98-107) mmol/L Carbon Dioxide 27 (21-32) mmol/L Anion Gap 5 (3-11) BUN 24 H (6-23) mg/dl Creatinine 1.27 (0.6-1.4) mg/dl Est Cr Clr Drug Dosing 67.0 ml/min eGFR 64.28 BUN/Creatinine Ratio 18.9 (10-20) Glucose 102 H (70-99(Fasting)) mg/dl Calcium 8.8 (8.6-10.3) mg/dl Total Bilirubin 0.7 (0.2-1.0) mg/dl AST 17 (13-39) U/L ALT 18 (7-52) U/L Alkaline Phosphatase 110 H (34-104) U/L Total Protein 6.1 (6.0-8.3) gm/dl Albumin 4.0 (3.4-5.0) gm/dl Globulin 2.1 L (2.5-4.0) gm/dl Albumin/Globulin Ratio 1.9 (0.9-2) Imaging Data Radiologist's Impression: Abdomen/Pelvis CT 05/08/25 11:39 CT SCAN OF THE ABDOMEN AND PELVIS WITH IV CONTRAST CLINICAL HISTORY: Lower back pain and spasms. COMPARISON STUDY: KUB June 28, 2024. CT of the abdomen and pelvis October 10, 2021. TECHNIQUE: Following the IV administration of 94 cc of Optiray 320, CT scan of the abdomen and pelvis is performed from the lung bases to the proximal femora. Images are reviewed in the axial, sagittal, and coronal planes. IV contrast was administered without complication. A dose lowering technique was utilized adhering to the principles of ALARA. CT DOSE: 1291.55 mGy.cm FINDINGS: Visualized lung bases are unremarkable. No pneumatosis, free air or portal venous gas is present. There is a 2.1 cm medial segment left hepatic lobe cyst. There are no suspicious hepatic lesions. Spleen, adrenal glands and pancreas are unremarkable. There is no biliary or pancreatic ductal dilatation. Bilateral renal cysts are noted. The largest is an 8.4 cm left upper pole cyst. Multiple bilateral renal calculi measure up to 3 mm. There are no ureteral calculi. There is no hydronephrosis. The appendix is normal. There is no evidence for a bowel obstruction. Pelvic calcifications represent phleboliths. Please note that the lumbar spine CT will be reported separately. Major vasculature is patent. IMPRESSION: 1. No acute process within the abdomen or pelvis. 2. Bilateral nephrolithiasis. No ureteral calculi or hydronephrosis. 3. No bowel obstruction. No bowel wall thickening. Normal appendix. ACT 112: Negative or not required by law. Electronically signed by: Shola Phillips M.D. 05/08/2025 1:[address] 05/08/25 11:[address] WITH CONTRAST CLINICAL HISTORY: Right low back pain. COMPARISON STUDY: Lumbar spine radiographs December 02, 2022. CT of the abdomen and pelvis October 10, 2021. TECHNIQUE: Axial images of the lumbar spine were obtained following intravenous injection of 94 cc of Optiray 320 IV. Sagittal and coronal reformats were viewed. A dose lowering technique was utilized adhering to the principles of ALARA. FINDINGS: Alignment of the lumbar spine is anatomic. Vertebral heights are maintained. There are no lumbar spine fractures. There are no suspicious osseous lesions. Paravertebral soft tissues are unremarkable. Purposes of numbering on this exam, the L5-S1 disc space is assigned to axial image [id number]. The central canal and neural foramen are suboptimally assessed given CT technique. A left paracentral disc protrusion at L5-S1 results in moderate narrowing of the left lateral recess. Additional mild disc bulges are present. There is suspected mild to moderate multilevel neural foraminal stenosis. IMPRESSION: 1. No lumbar spine fractures. 2. Mild degenerative disc disease and moderate facet arthrosis within the lumbar spine. Suboptimal evaluation of central canal and neural foramen given CT technique. 3. Left paracentral disc protrusion at L5-S1 which results in moderate narrowing of the left lateral recess. ACT 112: Negative or not required by law. Electronically signed by: Shola Phillips M.D. 05/08/2025 1:24 PM MDM Narrative Patient was seen and evaluated as above in room D02a. Review was performed of triage nursing notes and vital signs. I did review pertinent previous visits and patient history. After obtaining a thorough history and physical examination the above work up was performed. Patient presents to us today for evaluation of right low back pain. No trauma. No injury. He notes a history of back pain but this feels different. Options of care were discussed with the patient. IV access was established. Labs were drawn. No leukocytosis or concerning anemia. No emergent metabolic disturbance. Urinalysis without evidence of infection. Noting the new location of pain that is rather severe and unremitting with normal regimen of analgesia at home/antispasmodic medicines at home, I do believe that imaging is warranted. We will proceed with a CT scan of the abdomen/pelvis with IV contrast and lumbar spine recons. It is felt that the benefit outweighed risk. Results as above. No emergent findings. I do suspect this to be a musculoskeletal etiology. Despite analgesia here, ambulatory trial unfortunately was quite difficult with essentially same amount of pain the patient presented to the ED with initially. I discussed options. At this time we will proceed with further evaluation and management in the inpatient setting. GCS: 15 In the evaluation and treatment of this patient the following differential diagnosis entertained: Fracture, dislocation, subluxation, cauda equina syndrome, AAA, diverticulitis, appendicitis, torsion, osteomyelitis, piriformis syndrome, strain, sprain, among others. Impression & Plan Intractable back pain Discharge Plan Visit Data Chief Complaint: Back Injury/Pain Stated Complaint: SEVERE BACK SPASMS ED Provider: Vimal Beltrán ED Midlevel Provider: Bhavin Anna Discharge Problem: Intractable back pain Patient Disposition: Admitted As Inpatient Condition: Good Discharge Instructions Interventions: ED Discharge Assessment Last Done: 05/08/25 19:34
[2025-05-08] MEDS: ONDANSETRON INJ 2 MG/ML 2 ML VIAL IV STA (11:55)
[2025-05-08] MEDS: LIDOCAINE 5% 1 PATCH TD STA (11:56)
[2025-05-08] MEDS: HYDROmorphone INJ 0.5 MG/0.5 ML SYR IV STA ×3 (11:56→15:34)
[2025-05-08 12:18] LABS: Hematocrit (blood only) 44.4 % (42.0-52.0); Hemoglobin 15.7 g/dl (14.0-18.0); Immature Granulocytes # (auto) 0.01 K/uL (0.01-0.20); Immature Granulocytes % (auto) 0.2 %; Mean Corpuscular Hemoglobin 30.6 pg (25.0-34.0); Mean Corpuscular Volume 86.5 fL (80.0-100.0); Platelet Count 159 K/uL (130-400); RDW Standard Deviation 38.5 fL (36.4-46.3); Red Blood Count 5.13 M/uL (4.70-6.10); White Blood Count 5.87 K/ul (4.8-10.8)
[2025-05-08 12:35] LABS: Alanine Aminotransferase 18.0 U/L (7-52); Albumin Globulin Ratio 1.9 (0.9-2); Alkaline Phosphatase 110.0 U/L (34-104); Anion Gap 5.0 (3-11); Bilirubin,Total 0.7 mg/dl (0.2-1.0); Blood Urea Nitrogen 24.0 mg/dl (6-23); Calcium 8.8 mg/dl (8.6-10.3); Carbon Dioxide 27.0 mmol/L (21-32); Chloride 110.0 mmol/L (98-107); Creatinine Clr Calc Pharmacy 67.0 ml/min; Globulin 2.1 gm/dl (2.5-4.0); Glucose 102.0 mg/dl (70-99(Fasting)); Potassium 4.0 mmol/L (3.5-5.1); Sodium 142.0 mmol/L (136-145); Total Protein 6.1 gm/dl (6.0-8.3)
[2025-05-08] MEDS: OPTIRAY 320 100ml IV ONE (12:57)
--- NOTE | 2025-05-08 13:20 | CT Scan Report ---
CT SCAN OF THE ABDOMEN AND PELVIS WITH IV CONTRAST CLINICAL HISTORY: Lower back pain and spasms. COMPARISON STUDY: KUB June 28, 2024. CT of the abdomen and pelvis October 10, 2021. TECHNIQUE: Following the IV administration of 94 cc of Optiray 320, CT scan of the abdomen and pelvis is performed from the lung bases to the proximal femora. Images are reviewed in the axial, sagittal, and coronal planes. IV contrast was administered without complication. A dose lowering technique was utilized adhering to the principles of ALARA. CT DOSE: 1291.55 mGy.cm FINDINGS: Visualized lung bases are unremarkable. No pneumatosis, free air or portal venous gas is pr esent. There is a 2.1 cm medial segment left hepatic lobe cyst. There are no suspicious hepatic lesio ns. Spleen, adrenal glands and pancreas are unremarkable. There is no biliary or pancreatic ductal di latation. Bilateral renal cysts are noted. The largest is an 8.4 cm left upper pole cyst. Multiple bi lateral renal calculi measure up to 3 mm. There are no ureteral calculi. There is no hydronephrosis. The appendix is normal. There is no evidence for a bowel obstruction. Pelvic calcifications represent phleboliths. Please note that the lumbar spine CT will be reported separately. Major vasculature is patent. IMPRESSION: 1. No acute process within the abdomen or pelvis. 2. Bilateral nephrolithiasis. No ureteral calculi or hydronephrosis. 3. No bowel obstruction. No bowel wall thickening. Normal appendix. ACT 112: Negative or not required by law. Electronically signed by: Shola Phillips M.D. 05/08/2025 1:18 PM
--- NOTE | 2025-05-08 13:26 | CT Scan Report ---
LUMBAR SPINE CT WITH CONTRAST CLINICAL HISTORY: Right low back pain. COMPARISON STUDY: Lumbar spine radiographs December 02, 2022. CT of the abdomen and pelvis October 10, 2021. TECHNIQUE: Axial images of the lumbar spine were obtained following intravenous injection of 94 cc of Optiray 320 IV. Sagittal and coronal reformats were viewed. A dose lowering technique was utilized a dhering to the principles of ALARA. FINDINGS: Alignment of the lumbar spine is anatomic. Vertebral heights are maintained. There are no l umbar spine fractures. There are no suspicious osseous lesions. Paravertebral soft tissues are unrema rkable. Purposes of numbering on this exam, the L5-S1 disc space is assigned to axial image [id number]. The central canal and neural foramen are suboptimally assessed given CT technique. A left paracentral disc protrusion at L5-S1 results in moderate narrowing of the left lateral recess. Additional mild d isc bulges are present. There is suspected mild to moderate multilevel neural foraminal stenosis. IMPRESSION: 1. No lumbar spine fractures. 2. Mild degenerative disc disease and moderate facet arthrosis within the lumbar spine. Suboptimal ev aluation of central canal and neural foramen given CT technique. 3. Left paracentral disc protrusion at L5-S1 which results in moderate narrowing of the left lateral recess. ACT 112: Negative or not required by law. Electronically signed by: Shola Phillips M.D. 05/08/2025 1:24 PM
--- NOTE | 2025-05-08 16:13 | History & Physical Report ---
Date of Service May 08, 2025 Assessment & Plan (1) Intractable back pain: (2) Chronic kidney disease with active medical management without dialysis, stage 2 (mild): (3) Vitamin D deficiency: (4) Chronic GERD: (5) Mild obstructive sleep apnea: Plan 59-year-old man with past medical history of chronic back pain, CKD stage II, GERD, ANDREW, sensorineural hearing loss, nephrolithiasis, osteopenia, vitamin D deficiency. He has chronic right-sided thoracic back pain, which she follows with pain management for. For about 2 days [employer] OV[employer]ENDER, he has experienced acute onset of right lumbar back pain. Attempted to achieve pain control in the ED, however he failed his ambulatory trial and was subsequently admitted to the hospital. #Intractable back pain - acute on chronic, biomechanical/musculoskeletal - Pain regimen: Tylenol 1000 mg TID, ibuprofen 600 mg TID, Baclofen 10 mg BID, topical Voltaren gel BID, Dilaudid 0.25 mg Q6h PRN severe pain - Lidocaine patch Q12h and heating pad PRN - Will give 4 g IV mag now - PT/OT evaluations - Can discuss with pain management tomorrow 05/09 if he could have another injection #CKD stage II | Vit D deficiency baseline creatinine 1.3, follows with Dr. Villaseñor outpatient - Renal function at baseline - Was recommended to start Vit D supplementation at his most recent nephrology appointment in April 2025 - will start Cholecalciferol 50 mcg daily #GERD - continue PPI #ANDREW - declines CPAP while inpatient VTE PPx: low risk, ambulation Dispo: med surg Updated partner at bedside Reviewed outpatient records History of Present Illness Chief Complaint: Back pain Primary Care Provider: Haydee Foley MD Agus is a pleasant 59-year-old man with past medical history of chronic back pain, CKD stage II, GERD, ANDREW, sensorineural hearing loss, nephrolithiasis, osteopenia, vitamin D deficiency. He presented from home with right sided thoracic and lumbar back pain. At the time of my exam, the patient was lying in bed in no acute distress with his partner present at bedside. He states he has had ongoing right-sided thoracic back pain x 1-2 years, which she follows with pain management for in the outpatient setting. He had injections into his thoracic back about 3-4 weeks ago with significant improvement in his thoracic back pain symptoms. He states this area still feels significantly improved compared to prior to the injections. About 2-3 days prior to admission, he began experiencing spasms in his right lumbar spine/hip/right buttocks. The spasms last approximately 3-5 seconds and are severely painful. Walking usually helps loosen his tightness/improves his pain. Transitions from lying to sitting/sitting to standing are "brutal." He denies any radicular symptoms, paresthesias, or bowel/bladder incontinence. He intermittently uses a CPAP at night, but declines CPAP while inpatient. Vitals on admission are all stable. Labs on admission are overall unremarkable. CBC with differential WNL. Electrolytes, renal function, LFTs WNL. CT A/P on admission reveals bilateral nephrolithiasis but no ureteral calculi or hydronephrosis, no acute process within the abdomen or pelvis. Lumbar CT reveals mild degenerative disc disease and moderate facet arthrosis within the lumbar spine, left paracentral disc. Trusion at L5-S1 with moderate narrowing of the left lateral recess, no lumbar spinal fractures. We discussed code status, patient wishes to be a full code. Allergies Allergy/AdvReac Type Severity Reaction Status Date / Time No Known Drug Allergies Allergy Verified 05/08/25 15:04 Home Medications Medication Instructions Recorded Confirmed Type CPAP Machine #1 ea 07/21/23 05/03/25 Rx esomeprazole magnesium 40 mg 40 mg PO HS #90 caps 01/30/25 05/08/25 Rx capsule,delayed release (Nexium) baclofen 10 mg tablet 10 mg PO BID PRN muscle spasm #60 04/04/25 05/08/25 Rx tabs ibuprofen 200 mg tablet 200 mg PO Q6H PRN Pain 05/08/25 05/08/25 History Past Med/Surg History Problem List Intractable back pain (Acute) Thoracic back pain Abnormal smell Sensorineural hearing loss, bilateral Arthralgia Nasal congestion Lumbago Piriformis syndrome Protrusion of thoracic intervertebral disc Thoracic spine pain Chronic kidney disease with active medical management without dialysis, stage 2 (mild) History of colon polyps Vitamin D deficiency (Chronic) Tinnitus of both ears (Chronic) Osteopenia (Chronic) Nephrolithiasis (Chronic) Left asymmetrical SNHL (Chronic) Chronic GERD (Chronic) Erectile dysfunction (Chronic) Mild obstructive sleep apnea (Chronic) Multiple pulmonary nodules (Chronic) Hip pain, chronic (Chronic) Intra-abdominal lymphadenopathy (Chronic) Hyperglycemia (Chronic) Dyslipidemia (Chronic) Chronic rhinitis (Chronic) Myofascial pain S/P ureteral stent placement 10/13/2021: MAC. No issues per anesthesia postop progress note. Medical History Dyslipidemia Tinnitus Pulmonary nodules Hydronephrosis with renal and ureteral calculous obstruction Urination frequency Sleep apnea Kidney stones GERD (gastroesophageal reflux disease) Migraine Surgical History History of cystoscopy History of esophagogastroduodenoscopy (EGD) Hx of vasectomy History of tooth extraction History of colonoscopy Family History Sister Breast cancer Family hx colonic polyps Mother Breast cancer Grandfather Myocardial infarction Father Family hx colonic polyps Other No family history of adverse response to anesthesia Denies family history of Ovarian cancer Prostate cancer Colorectal cancer Social History Smoking Status: Never smoker Second Hand Exposure: Yes (as a child, father smoked); Do You Dip or Chew Tobacco: No; Hx Alcohol Use: No Hx Substance Use: No Preferred Language: Prydeinig Communication Ability: Effective Visual Impairment: No Limitations Hearing Ability: Normal Sap Administrator Required: No Beliefs That Will Affect Care: None marital status: Current Living Situation: Spouse and Family Current Living Situation Comment: partner and her 4 kids current occupational status: employed How many Children do You have: 2 Other Information That Helps Us Care for You: No Feels Safe at Home: Yes Safety Concerns: Feels Safe At This Time Childhood Exposure to Second-Hand Smoke: No Diet: regular caffeine: Yes during the past year weight has: increased > 10 lbs Dental Care, Regularly: Yes Physical Activity Frequency: Daily Seatbelt Use: always Sunscreen Use: Yes Assistive Devices: Cane and CPAP Assistive Devices Comment: pt report he has not been wearing his CPAP at home Review of Systems Review of Systems: All systems reviewed & are unremarkable except as noted in HPI & below Physical Exam Physical Exam: General: No acute distress, nondiaphoretic, well-developed, well-nourished. Skin: Warm, dry. No rashes or peripheral edema noted. Cardiac: Regular rate and rhythm without murmurs gallops or rubs. Pulm: Clear to auscultation bilaterally without wheezes, rales or rhonchi. Normal respiratory effort. 97% on room air. Abdominal: Soft, nontender, nondistended. Bowel sounds present. Neuro: A&O x3. No focal neurological deficits. Back/MSK: Significant tenderness to palpation of right sided lumbar region. Normal strength and sensation in lower extremities bilaterally. Results & Data Results & Data Vital Signs (Past 12 Hours) Vital Signs Temp Pulse Pulse Resp BP BP Pulse Ox 05/08/25 14:33 57 L 17 133/84 97 05/08/25 11:13 97.9 F 80 19 118/80 96 O2 Del Method 05/08/25 14:33 Room Air 05/08/25 11:13 Room Air Laboratory Results Reviewed CBC with differential Reviewed CMP Diagnostic Findings Reviewed CT A/P Reviewed CT lumbar spine Abdomen/Pelvis CT 05/08/25 11:39 CT SCAN OF THE ABDOMEN AND PELVIS WITH IV CONTRAST CLINICAL HISTORY: Lower back pain and spasms. COMPARISON STUDY: KUB June 28, 2024. CT of the abdomen and pelvis October 10, 2021. TECHNIQUE: Following the IV administration of 94 cc of Optiray 320, CT scan of the abdomen and pelvis is performed from the lung bases to the proximal femora. Images are reviewed in the axial, sagittal, and coronal planes. IV contrast was administered without complication. A dose lowering technique was utilized adhering to the principles of ALARA. CT DOSE: 1291.55 mGy.cm FINDINGS: Visualized lung bases are unremarkable. No pneumatosis, free air or portal venous gas is present. There is a 2.1 cm medial segment left hepatic lobe cyst. There are no suspicious hepatic lesions. Spleen, adrenal glands and pancreas are unremarkable. There is no biliary or pancreatic ductal dilatation. Bilateral renal cysts are noted. The largest is an 8.4 cm left upper pole cyst. Multiple bilateral renal calculi measure up to 3 mm. There are no ureteral calculi. There is no hydronephrosis. The appendix is normal. There is no evidence for a bowel obstruction. Pelvic calcifications represent phleboliths. Please note that the lumbar spine CT will be reported separately. Major vasculature is patent. IMPRESSION: 1. No acute process within the abdomen or pelvis. 2. Bilateral nephrolithiasis. No ureteral calculi or hydronephrosis. 3. No bowel obstruction. No bowel wall thickening. Normal appendix. ACT 112: Negative or not required by law. Electronically signed by: Shola Phillips M.D. 05/08/2025 1:[address] 05/08/25 11:[address] WITH CONTRAST CLINICAL HISTORY: Right low back pain. COMPARISON STUDY: Lumbar spine radiographs December 02, 2022. CT of the abdomen and pelvis October 10, 2021. TECHNIQUE: Axial images of the lumbar spine were obtained following intravenous injection of 94 cc of Optiray 320 IV. Sagittal and coronal reformats were viewed. A dose lowering technique was utilized adhering to the principles of ALARA. FINDINGS: Alignment of the lumbar spine is anatomic. Vertebral heights are maintained. There are no lumbar spine fractures. There are no suspicious osseous lesions. Paravertebral soft tissues are unremarkable. Purposes of numbering on this exam, the L5-S1 disc space is assigned to axial image [id number]. The central canal and neural foramen are suboptimally assessed given CT technique. A left paracentral disc protrusion at L5-S1 results in moderate narrowing of the left lateral recess. Additional mild disc bulges are present. There is suspected mild to moderate multilevel neural foraminal stenosis. IMPRESSION: 1. No lumbar spine fractures. 2. Mild degenerative disc disease and moderate facet arthrosis within the lumbar spine. Suboptimal evaluation of central canal and neural foramen given CT technique. 3. Left paracentral disc protrusion at L5-S1 which results in moderate narrowing of the left lateral recess. ACT 112: Negative or not required by law. Electronically signed by: Shola Phillips M.D. 05/08/2025 1:24 PM Supervising Physician Co-Signing Physician Notes I personally examined the patient and verified all mistry points of history and exam, discussed case, and agree with decision making with Isabella Horvath PAKrystianC back pain - doing better since dilauded. no radicular sx. low back vitals noted mildly groggy from pain meds but no distress. pain now nonreproducable - points to superior sl lateral pelvic brim where pain was most intense but unable to find now intractable back pain -location/quality seems extremely muscular - ?spasms that have now relaxed since pain meds helped -serial exams, OMT if specific muscle group found -mag/voltaren gel -PT/OT -dilauded prn PG Care Time/CCT Total # of Minutes Spent Total Time Spent with Patient: Total time spent is greater than 50% in coordination of care (as documented) at patient's floor/unit and/or counseling patient: Coding Level of Care Code 18835 INT INP/OBS CARE 3/75MIN Diagnoses Intractable back pain M54.9 Chronic kidney disease with active medical management without dialysis, stage 2 (mild) N18.2 Vitamin D deficiency E55.9 Chronic GERD K21.9 Mild obstructive sleep apnea G47.33
[2025-05-08] MEDS ORDERED: ALUMINUM/MAGNESIUM SUSP 30 ML UDC PO PRN (18:35)
[2025-05-08] MEDS ORDERED: POLYETHYLENE (MIRALAX) 17 GM PACK PO PRN (18:35)
[2025-05-08] MEDS: MAGNESIUM SULFATE / D5W 1 GM/100 ML BAG IV SCH (20:13)
[2025-05-08] MEDS: IBUPROFEN 600 MG TAB PO SCH (20:13)
[2025-05-08 20:36] LABS: Appearance Urine Clear (Clear); Glucose Urine UA Negative (Negative)
[2025-05-08] MEDS ORDERED: REMOVE LIDODERM PATCH SCH (21:00)
[2025-05-08] MEDS: HYDROmorphone INJ 0.5 MG/0.5 ML SYR IV PRN (21:15)
[2025-05-08] MEDS: ACETAMINOPHEN 500 MG TAB PO SCH (21:16)
[2025-05-08] MEDS: BACLOFEN 10 MG TAB PO SCH (21:19)
[2025-05-08] MEDS: DICLOFENAC SOD 1% GEL 100 GM TUBE EXT SCH (21:20)
[2025-05-08] MEDS: REMOVE LIDODERM PATCH SCH (21:26)
[2025-05-08] MEDS: ARTIFICIAL TEARS OPB PRN (23:22)
[2025-05-09 06:35] LABS: Hematocrit (blood only) 44.2 % (42.0-52.0); Hemoglobin 15.1 g/dl (14.0-18.0); Mean Corpuscular Hemoglobin 29.7 pg (25.0-34.0); Mean Corpuscular Volume 86.8 fL (80.0-100.0); Platelet Count 156 K/uL (130-400); RDW Standard Deviation 39.0 fL (36.4-46.3); Red Blood Count 5.09 M/uL (4.70-6.10); White Blood Count 5.62 K/ul (4.8-10.8)
[2025-05-09 06:53] LABS: Anion Gap 6.0 (3-11); Blood Urea Nitrogen 21.0 mg/dl (6-23); Calcium 8.2 mg/dl (8.6-10.3); Carbon Dioxide 27.0 mmol/L (21-32); Chloride 107.0 mmol/L (98-107); Creatinine Clr Calc Pharmacy 73.4 ml/min; Glucose 99.0 mg/dl (70-99(Fasting)); Magnesium 2.9 mg/dl (1.7-2.4); Potassium 4.0 mmol/L (3.5-5.1); Sodium 140.0 mmol/L (136-145)
[2025-05-09] MEDS: CHOLECALCIFEROL 25 MCG (1000 UNITS) TAB PO SCH (08:49)
[2025-05-09] MEDS: LIDOCAINE 5% 1 PATCH TD SCH (09:53)
--- NOTE | 2025-05-09 15:40 | Hospitalist Progress Note ---
Date of Service May 09, 2025 Assessment & Plan (1) Intractable back pain: (2) Chronic kidney disease with active medical management without dialysis, stage 2 (mild): (3) Vitamin D deficiency: (4) Chronic GERD: (5) Mild obstructive sleep apnea: Plan 59-year-old man with past medical history of chronic back pain, CKD stage II, GERD, ANDREW, sensorineural hearing loss, nephrolithiasis, osteopenia, vitamin D deficiency. He has chronic right-sided thoracic back pain, which she follows with pain management for. For about 2 days [employer] PRES[employer]UC[employer], he has experienced acute onset of right lumbar back pain. Attempted to achieve pain control in the ED, however he failed his ambulatory trial and was subsequently admitted to the hospital. #Intractable back pain - acute on chronic, biomechanical/musculoskeletal - Pain regimen: Tylenol 1000 mg TID, ibuprofen 600 mg TID, Baclofen 10 mg BID, topical Voltaren gel BID. Will discontinue Dilaudid now and start oxycodone 5- 10 mg Q6h PRN for mod-severe pain - Continue lidocaine patch Q12h and heating pad PRN - PT/OT following - did fairly well with activity, recommending outpatient PT #CKD stage II | Vit D deficiency baseline creatinine 1.3, follows with Dr. Villaseñor outpatient - Renal function at baseline - Was recommended to start Vit D supplementation at his most recent nephrology appointment in April 2025 - started/continued on Cholecalciferol 50 mcg daily #GERD - continue PPI #ANDREW - declines CPAP while inpatient VTE PPx: low risk, ambulation Dispo: med surg Updated partner at bedside Discontinued Dilaudid Started oxycodone Admission and Anticipated Discharge Date Admission Date: May 08, 2025 Supervising Physician Co-Signing Physician Notes chart reviewed and case d/w S Yuliet ORDAZ, as above Subjective Patient seen and evaluated at bedside with his partner present. He reports some overall improvement, though he still experiences what he states are "micro spasms." He worked with PT earlier and states he did well. He has been attempting to ambulate the halls as able. We discussed possible discharge today versus tomorrow. Ultimately decided to ensure that his pain is tolerable without IV pain medications. If continued improvement with pain and ambulation, anticipate discharge tomorrow 05/10. No additional complaints or concerns at this time. Physical Exam Physical Exam: General: No acute distress, nondiaphoretic, well-developed, well-nourished. Skin: Warm, dry. No rashes or peripheral edema noted. Cardiac: Regular rate and rhythm without murmurs gallops or rubs. Pulm: Clear to auscultation bilaterally without wheezes, rales or rhonchi. Normal respiratory effort. 93% on room air. Abdominal: Soft, nontender, nondistended. Bowel sounds present. Neuro: A&O x3. No focal neurological deficits. Back/MSK: Mild tenderness to palpation of right sided lumbar region. Normal strength and sensation in lower extremities bilaterally. Results & Data Results & Data Vital Signs (Past 12 Hours) Vital Signs Temp Pulse Pulse Resp BP Pulse Ox O2 Del Method 05/09/25 13:28 97.9 F 59 L 16 122/73 93 Room Air 05/09/25 07:44 97.7 F 58 L 16 116/68 96 Room Air 05/09/25 06:30 116/72 Laboratory Results Reviewed CBC Reviewed BMP, mag PG Care Time/CCT Total # of Minutes Spent Total Time Spent with Patient: Total time spent is greater than 50% in coordination of care (as documented) at patient's floor/unit and/or counseling patient: Coding Level of Care Code 98063 SUB INP/OBS CARE 3/50MIN Diagnoses Intractable back pain M54.9 Chronic kidney disease with active medical management without dialysis, stage 2 (mild) N18.2 Vitamin D deficiency E55.9 Chronic GERD K21.9 Mild obstructive sleep apnea G47.33
--- NOTE | 2025-05-10 12:05 | Hospitalist Progress Note ---
"Date of Service May 10, 2025 Assessment & Plan (1) Intractable back pain: (2) Chronic kidney disease with active medical management without dialysis, stage 2 (mild): (3) Vitamin D deficiency: (4) Chronic GERD: (5) Mild obstructive sleep apnea: Plan 59-year-old man with past medical history of chronic back pain, CKD stage II, GERD, ANDREW, sensorineural hearing loss, nephrolithiasis, osteopenia, vitamin D deficiency. He has chronic right-sided thoracic back pain, which she follows with pain management for. 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 Attempted to achieve pain control in the ED, however he failed his ambulatory trial and was subsequently admitted to the hospital. #Intractable back pain - acute on chronic, biomechanical/musculoskeletal - Pain regimen: Tylenol 1000 mg TID, ibuprofen 600 mg TID, Baclofen 10 mg BID, topical Voltaren gel BID, oxycodone 5-10 mg Q6h PRN for mod-severe pain - Continue lidocaine patch Q12h and heating pad PRN - PT/OT following - did fairly well with activity, recommending outpatient PT - Pain is improving on current regimen #CKD stage II | Vit D deficiency baseline creatinine 1.3, follows with Dr. Villaseñor outpatient - Renal function at baseline - Was recommended to start Vit D supplementation at his most recent nephrology appointment in April 2025 - started/continued on Cholecalciferol 50 mcg daily #GERD - continue PPI #ANDREW - declines CPAP while inpatient VTE PPx: low risk, ambulation Dispo: Anticipate discharge 05/11 if no acute events overnight Admission and Anticipated Discharge Date Admission Date: May 08, 2025 Supervising Physician Co-Signing Physician Notes chart reviewed and case d/w S Yuliet ORDAZ, as above Subjective Patient seen and evaluated while sitting up at bedside eating lunch. He reports improvement in his lumbar back pain/spasms. He states yesterday evening he was quite painful, but this improved overnight and is better today. He was able to walk 3 laps in the hallway with his cane, which is more than he has been able to do previously. We discussed discharge today vs tomorrow and ultimately decided to stay inpatient tonight to ensure his pain does not worsen again to hopefully prevent a return to the hospital. He states that if he continues with the same level of pain as he has at this time throughout the rest of the day and o vernight, he feels comfortable with going home tomorrow. He denies any other complaints or concerns at this time. Physical Exam Physical Exam: General: No acute distress, nondiaphoretic, well-developed, well-nourished. Skin: Warm, dry. No rashes or peripheral edema noted. Cardiac: Well-perfused. Rate in 50-60s. Pulm: Normal respiratory effort. 94% on room air. Neuro: A&O x3. No focal neurological deficits. Back/MSK: No pain with palpation of right sided lumbar region (but did just receive narcotic prior to my exam). Normal strength and sensation in lower extremities bilaterally. Results & Data Results & Data Vital Signs (Past 12 Hours) Vital Signs Temp Pulse Resp BP Pulse Ox O2 Del Method 05/10/25 11:35 97.7 F 59 L 17 114/70 94 Room Air 05/10/25 07:18 97.9 F 60 16 122/82 97 Room Air PG Care Time/CCT Total # of Minutes Spent Total Time Spent with Patient: Total time spent is greater than 50% in coordination of care (as documented) at patient's floor/unit and/or counseling patient: Coding Level of Care Code 79391 SUB INP/OBS CARE 2/35MIN Diagnoses Intractable back pain M54.9 Chronic kidney disease with active medical management without dialysis, stage 2 (mild) N18.2 Vitamin D deficiency E55.9 Chronic GERD K21.9 Mild obstructive sleep apnea G47.33"
[2025-05-10 19:35] VITALS: O2SAT 94
[2025-05-11 07:13] VITALS: BP 121/68; PULSE 60; RESP 16; TEMP 97.7
[2025-05-11] MEDS: ONDANSETRON INJ 2 MG/ML 2 ML VIAL IV PRN (07:59)
--- NOTE | 2025-05-11 11:13 | Discharge Summary ---
Discharge Summary Date of Service May 11, 2025 Principal Dx & Hospital Course #1 = Principal Diagnosis (1) Intractable back pain: (2) Chronic kidney disease with active medical management without dialysis, stage 2 (mild): (3) Vitamin D deficiency: (4) Chronic GERD: (5) Mild obstructive sleep apnea: Plan 59-year-old man with past medical history of chronic back pain, CKD stage II, GERD, ANDREW, sensorineural hearing loss, nephrolithiasis, osteopenia, vitamin D deficiency. He has chronic right-sided thoracic back pain, which she follows with pain management for. For about 2 days [employer], he has experienced acute onset of right lumbar back pain. Attempted to achieve pain control in the ED, however he failed his ambulatory trial and was subsequently admitted to the hospital. #Intractable back pain - biomechanical/musculoskeletal. Has chronic thoracic back pain, but this acute episode is right-sided lumbar region - Continue pain regimen: Tylenol 1000 mg TID, ibuprofen 600 mg TID, Baclofen 10 mg BID, topical Voltaren gel BID, oxycodone 5 mg Q6h PRN for mod-severe pain - Continue lidocaine patch Q12h and heating pad PRN - PT/OT following - did fairly well with activity, recommending outpatient PT. He does consistently see a massage therapist which he reports really helps him - Pain is improving on current regimen. Able to ambulate independently with cane now #CKD stage II | Vit D deficiency baseline creatinine 1.3, follows with Dr. Villaseñor outpatient - Renal function at baseline - Was recommended to start Vit D supplementation at his most recent nephrology appointment in April 2025 - started/continued on Cholecalciferol 50 mcg daily #GERD - continue PPI #ANDREW - declines CPAP while inpatient VTE PPx: low risk, ambulation Dispo: Discharged home 05/11 Notes For Next Care Provider Consider outpatient PT referral Medication Changes From Visit Tylenol 1000 mg TID, ibuprofen 600 mg TID, Baclofen 10 mg BID, topical Voltaren gel BID, oxycodone 5 mg Q6h PRN for mod-severe pain, lidocaine patch Q12h Admission HPI Per Admitting Provider Agus is a pleasant 59-year-old man with past medical history of chronic back pain, CKD stage II, GERD, ANDREW, sensorineural hearing loss, nephrolithiasis, osteopenia, vitamin D deficiency. He presented from home with right sided thoracic and lumbar back pain. At the time of my exam, the patient was lying in bed in no acute distress with his partner present at bedside. He states he has had ongoing right-sided thoracic back pain x 1-2 years, which she follows with pain management for in the outpatient setting. He had injections into his thoracic back about 3-4 weeks ago with significant improvement in his thoracic back pain symptoms. He states this area still feels significantly improved compared to prior to the injections. About 2-3 days prior to admission, he began experiencing spasms in his right lumbar spine/hip/right buttocks. The spasms last approximately 3-5 seconds and are severely painful. Walking usually helps loosen his tightness/improves his pain. Transitions from lying to sitting/sitting to standing are "brutal." He denies any radicular symptoms, paresthesias, or bowel/bladder incontinence. He intermittently uses a CPAP at night, but declines CPAP while inpatient. Vitals on admission are all stable. Labs on admission are overall unremarkable. CBC with differential WNL. Electrolytes, renal function, LFTs WNL. CT A/P on admission reveals bilateral nephrolithiasis but no ureteral calculi or hydronephrosis, no acute process within the abdomen or pelvis. Lumbar CT reveals mild degenerative disc disease and moderate facet arthrosis within the lumbar spine, left paracentral disc. Trusion at L5-S1 with moderate narrowing of the left lateral recess, no lumbar spinal fractures. We discussed code status, patient wishes to be a full code. Discharge Exam General: No acute distress, nondiaphoretic, well-developed, well-nourished. Skin: Warm, dry. No rashes or peripheral edema noted. Cardiac: Well-perfused. Rate in 60s. Pulm: Normal respiratory effort. 94% on room air. Neuro: A&O x3. No focal neurological deficits. Back/MSK: Minimal pain with palpation of right sided lumbar region. Normal strength and sensation in lower extremities bilaterally. Discharge Plan Discharge Items Patient Disposition: Home - Self-Care Reason For Visit: UNCONTROLLED BACK PAIN, AMBULATORY DYSFUNCTION Discharge Diagnosis: Lumbar back pain Condition on Discharge: Good Activity: As commented below Activity Comment: Activity as tolerated Non-emergency contact: Primary Care Provider Call non-emergency contact if: you have any medication questions and your symptoms worsen Follow-up/Referrals: Haydee Foley MD [Primary Care Provider] - 05/17/25 2:00 pm () Diet: Regular Addtl Attending Provider Instructions: Kirk Goldsmith were admitted to the hospital with intractable lumbar back pain. This is found to be musculoskeletal/biomechanical in nature. You were treated medically with multiple medications and have improved. You can continue on the same regimen for now. Upon discharge from the hospital: * Take Tylenol 1000 mg 3 times daily. Take ibuprofen 600 mg 3 times daily. These are available [id number] so no prescription is needed. * Take baclofen 10 mg twice daily. * Use topical Voltaren gel twice daily. * Apply lidocaine patch every morning, wear for 12 hours, then remove for 12 hours, repeat. * Use oxycodone 5-10 mg every 6 hours as needed for moderatesevere pain. * You can use a heating pad as needed. * Take Zofran every 6 hours as needed for nausea. * Continue taking your Nexium, especially while taking NSAIDs as they can be hard on your stomach. * You were started on vitamin D supplement, continue taking this. * Continue to follow with your massage therapist. * Follow-up with your PCP in 1-2 weeks. Please return to the hospital if you experience any of the following: Severe back pain, inability to ambulate, numbness/tingling down your legs/into your g roin, loss of bladder/bowel control, chest pain, difficulty breathing, passing out, confusion, or any other symptoms concerning for you. It was a pleasure taking care of you while you were in the hospital! Pending Studies at Discharge: No Stand-Alone Forms: [facility], Smoking Cessation Medications and DC Order Prescriptions: New lidocaine 5 % Adhesive Patch,Medicated 1 patch transdermal QAM Qty: 15 0RF cholecalciferol (vitamin D3) 25 mcg (1,000 unit) Capsule 50 mcg PO QAM Qty: 30 0RF oxycodone 5 mg Tablet 10 mg PO Q6 PRN (Reason: moderate-severe pain) Qty: 14 0RF diclofenac sodium [Voltaren Arthritis Pain] 1 % Gel 4 g EXT BID Qty: 100 0RF acetaminophen [Tylenol Extra Strength] 500 mg Tablet 1,000 mg PO TID Qty: 60 0RF ondansetron HCl 4 mg tablet 4 mg PO Q6H PRN (Reason: nausea and vomiting) Qty: 30 0RF Continued esomeprazole magnesium [Nexium] 40 mg capsule,delayed release(DR/EC) 40 mg PO HS Qty: 90 3RF baclofen 10 mg tablet 10 mg PO BID PRN (Reason: muscle spasm) Qty: 60 1RF (DME) CPAP Machine Misc See Rx Instructions .Route Qty: 1 0RF Rx Instructions: CPAP 12 cm water pressure with heated humidification, tubing, and supplies. ELOENORA: 99+years. Changed ibuprofen 200 mg Tablet 600 mg PO Q6H PRN (Reason: Pain) Qty: 0 0RF Discharge Orders: Discharge Order (Routine); Ordered 05/11/25 Ordered By: Elissa Horvath Admission Data Admit Date/Time: 05/08/25 16:06 Attending Provider: Harshal Dc Admit Provider: Harshal Dc Primary Care Provider: Haydee Foley Other Providers: Harshal Dc Other Interventions: Discharge Summary Assessment (RN) Last Done: 05/11/25 10:33 Hospital Stay Data Consultations 05/08/25 14:42 ED Decision to Admit Stat Diagnostic Imagining Performed Abdomen/Pelvis CT 05/08/25 11:39 CT SCAN OF THE ABDOMEN AND PELVIS WITH IV CONTRAST CLINICAL HISTORY: Lower back pain and spasms. COMPARISON STUDY: KUB June 28, 2024. CT of the abdomen and pelvis October 10, 2021. TECHNIQUE: Following the IV administration of 94 cc of Optiray 320, CT scan of the abdomen and pelvis is performed from the lung bases to the proximal femora. Images are reviewed in the axial, sagittal, and coronal planes. IV contrast was administered without complication. A dose lowering technique was utilized adhering to the principles of ALARA. CT DOSE: 1291.55 mGy.cm FINDINGS: Visualized lung bases are unremarkable. No pneumatosis, free air or portal venous gas is present. There is a 2.1 cm medial segment left hepatic lobe cyst. There are no suspicious hepatic lesions. Spleen, adrenal glands and pancreas are unremarkable. There is no biliary or pancreatic ductal dilatation. Bilateral renal cysts are noted. The largest is an 8.4 cm left upper pole cyst. Multiple bilateral renal calculi measure up to 3 mm. There are no ureteral calculi. There is no hydronephrosis. The appendix is normal. There is no evidence for a bowel obstruction. Pelvic calcifications represent phleboliths. Please note that the lumbar spine CT will be reported separately. Major vasculature is patent. IMPRESSION: 1. No acute process within the abdomen or pelvis. 2. Bilateral nephrolithiasis. No ureteral calculi or hydronephrosis. 3. No bowel obstruction. No bowel wall thickening. Normal appendix. ACT 112: Negative or not required by law. Electronically signed by: Shola Phillips M.D. 05/08/2025 1:[address] 05/08/25 11:[address] WITH CONTRAST CLINICAL HISTORY: Right low back pain. COMPARISON STUDY: Lumbar spine radiographs December 02, 2022. CT of the abdomen and pelvis October 10, 2021. TECHNIQUE: Axial images of the lumbar spine were obtained following intravenous injection of 94 cc of Optiray 320 IV. Sagittal and coronal reformats were viewed. A dose lowering technique was utilized adhering to the principles of ALARA. FINDINGS: Alignment of the lumbar spine is anatomic. Vertebral heights are maintained. There are no lumbar spine fractures. There are no suspicious osseous lesions. Paravertebral soft tissues are unremarkable. Purposes of numbering on this exam, the L5-S1 disc space is assigned to axial image [id number]. The central canal and neural foramen are suboptimally assessed given CT technique. A left paracentral disc protrusion at L5-S1 results in moderate narrowing of the left lateral recess. Additional mild disc bulges are present. There is suspected mild to moderate multilevel neural foraminal stenosis. IMPRESSION: 1. No lumbar spine fractures. 2. Mild degenerative disc disease and moderate facet arthrosis within the lumbar spine. Suboptimal evaluation of central canal and neural foramen given CT technique. 3. Left paracentral disc protrusion at L5-S1 which results in moderate narrowing of the left lateral recess. ACT 112: Negative or not required by law. Electronically signed by: Shola Phillips M.D. 05/08/2025 1:24 PM Pending Results Patient Have Any Pending Studies at Discharge: No Discharge Instructions Given to Patient (Per Discharging Provider) Kirk Goldsmith were admitted to the hospital with intractable lumbar back pain. This is found to be musculoskeletal/biomechanical in nature. You were treated medically with multiple medications and have improved. You can continue on the same regimen for now. Upon discharge from the hospital: * Take Tylenol 1000 mg 3 times daily. Take ibuprofen 600 mg 3 times daily. These are available [id number] so no prescription is needed. * Take baclofen 10 mg twice daily. * Use topical Voltaren gel twice daily. * Apply lidocaine patch every morning, wear for 12 hours, then remove for 12 hours, repeat. * Use oxycodone 5-10 mg every 6 hours as needed for moderatesevere pain. * You can use a heating pad as needed. * Take Zofran every 6 hours as needed for nausea. * Continue taking your Nexium, especially while taking NSAIDs as they can be hard on your stomach. * You were started on vitamin D supplement, continue taking this. * Continue to follow with your massage therapist. * Follow-up with your PCP in 1-2 weeks. Please return to the hospital if you experience any of the following: Severe back pain, inability to ambulate, numbness/tingling down your legs/into your groin, loss of bladder/bowel control, chest pain, difficulty breathing, passing out, confusion, or any other symptoms concerning for you. It was a pleasure taking care of you while you were in the hospital! Supervising Physician Co-Signing Physician Notes chart reviewed and case d/w S Yuliet ORDAZ, as above Total Time Total Time Spent Total Time Spent (In Minutes): Greater than 30 minutes spent completing this discharge process including direct patient care, medication reconciliation, documentation, review of labs and images, and coordination of care. Coding Level of Care Code 94884 INP/OBS DISCH >30 MIN Diagnoses Intractable back pain M54.9 Chronic kidney disease with active medical management without dialysis, stage 2 (mild) N18.2 Vitamin D deficiency E55.9 Chronic GERD K21.9 Mild obstructive sleep apnea G47.33
== END 2025-05-11 15:39 | disposition home or self-care (01) | DRG 552 ==
LOC: SUATTDRO → ED 11:02 → EDINP 16:06 → INTOOBSV 16:06 → 3E 19:34